=== PATIENT | female | born 1990 | race Caucasian/White ===

== ENCOUNTER 2024-09-13 19:58 | Emergency (ER) | payer OTHER, SELFPAY ==
--- NOTE | ~2024-09-13 | XR_ITS ---
CLINICAL HISTORY: dog bite 2 view right forearm Comparison: None Findings: No displaced fracture of the right radius or right ulna. 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 No dislocation of the imaged wrist or imaged elbow. No radiopaque retained foreign body. Soft tissue swelling with likely superficial gas of the ventral soft tissues. IMPRESSION: No acute fracture of the right radius or right ulna. This document has been electronically signed by: Albert Moran MD on 09/13/2024 20:57:59
[2024-09-13 20:04] VITALS: BP 112/71; PULSE 97; RESP 16; TEMP 36.7; O2SAT 100; BMI 30.1
--- NOTE | 2024-09-13 20:09 | ED_ITS ---
HPI - Animal Bite General Chief Complaint: Animal Bite Stated Complaint: Dog bite R arm Time Seen by Provider: 09/14/24 00:15 Source: patient, RN notes reviewed and old records reviewed Mode of arrival: ambulatory Limitations: no limitations History of Present Illness ED Provider: Joanne SINHA narrative: 34-year-old female presents for evaluation of a dog bite to her right arm. This was her dog that is up-to-date on his vaccines. The patient is not up-to-date on her tetanus shot. She states that she has had the dog for several years, The dog as noted been aggressive towards her. The dog does get somewhat possessive over food. She states that the dog bit her once in the right arm and she sustained 2 lacerations to the right arm Related Data Previous Rx's ?Medication ?Instructions ?Recorded amoxicillin 875 mg-potassium 1 tab PO Q12H #14 tabs 09/14/24 clavulanate 125 mg tablet Allergies Allergy/AdvReac Type Severity Reaction Status Date / Time avocado Allergy Gastrointestinal Verified 09/13/24 20:06 Upset pneumococcal vaccine Allergy Swelling Verified 09/13/24 20:06 Review of Systems Integumentary/Breasts: Skin/Breast: Reports wounds PMFSH Social History Social History Smoked in Last 30 Days: No Substance Use Type: Marijuana Advance Directives: No Advance Directives Information Provided: Yes Physical Exam ED Vital Signs: Vital Signs - 24 hr 09/13/24 20:04 09/13/24 23:32 09/14/24 01:40 Temperature 98.1 F 98.0 F 0 F L Pulse Rate 97 64 0 L Respiratory Rate 16 20 20 Blood Pressure 112/71 112/69 0/0 L Pulse Oximetry 100 99 Oxygen Delivery Method Room Air Room Air Room Air BMI result Body Mass Index 30.1 Const General: healthy appearing, comfortable, no acute distress, alert and awake Nutritional Appearance: well nourished Orientation/consciousness: patient oriented x3 HENMT Head: Yes normocephalic and Yes atraumatic Eyes Eyelids: Yes eyelids normal Conjunctivae: conjunctivae normal Sclerae: sclerae normal Corneas: corneas normal Pupils: Equal, round and reactive pupils present EOM: EOMs intact bilaterally Neck Neck: Yes full ROM Resp Effort & Inspection: normal respiratory effort, able to speak in complete sentences and not labored Skin General skin exam: elasticity normal Neuro General: patient oriented x3 Cranial nerves: Yes Equal, round and reactive pupils present and Yes Bilaterally intact EOM present Cognition (Neuro): normal cognition Extrem Other: Patient has a 3 cm linear, gaping wound to the ventral surface of the right forearm. Fatty tissue was exposed, no active bleeding. There was a smaller about 1 cm wound on the ulnar side of the arm distal to the larger laceration. Again fatty tissue exposed Course Course Course Narrative: This is a Rapid Medical Examination (RME) performed by Noemi Sharif PA-C in triage. Full HPI, ROS, assessment and treatment plan per primary provider in the Main ED. 34 yo female here for eval of dog bite to right forearm from her own dog. dog is UTD on vaccines. she is not utd on tetanus. +noted puncture wound to ventral and medial aspect of right forearm w/ SQ tissue. bleeding controlled. dressing applied. Plan: xrs, tdap booster Medications Administered Discontinued Medications Generic Name Dose Route Start Last Admin Trade Name Freq PRN Reason Stop Dose Admin Amoxicillin/Clavulanate Potassium 875 mg 09/14/24 00:36 09/14/24 00:42 Amoxicillin/Potassium Clav 875 Mg Tablet PO 09/14/24 00:37 875 mg ONCE ONE Administration Diphtheria/Tetanus/Acell Pertussis 0.5 ml 09/13/24 20:08 09/14/24 00:35 Diphth,Pertus(Acell),Tet Adult 0.5 Ml Syringe IM 09/13/24 20:09 0.5 ml .ONCE ONE Administration Lidocaine/Epinephrine 10 ml 09/14/24 00:36 09/14/24 00:42 Lidocaine Hcl 1%/Epi 1:100,000 10 Ml Vial INFILTRATI 09/14/24 00:37 10 ml ONCE ONE Administration Medical Decision Making Medical Decision Making [facility] Narrative: 34-year-old female presents for evaluation of lacerations to her right arm. X- ray negative for fracture. The patient has 2 gaping wounds, see procedure note for sutures to approximate the wounds. Patient will be started on Augmentin, 1st dose given in the ER, tetanus updated. Differential Diagnosis Differential Diagnoses: The differential diagnosis associated with the presentation includes Laceration Dog bite Puncture wound Contusion Procedures Laceration Laceration 1: Site: upper extremity Side (If applicable): right Size (cm): 3 Description: linear Depth: simple, single layer Local Anesthetic: lidocaine 1% and with epi Amount of anesthesia used (mL): 5 Pre-repair: wound explored, irrigated extensively and deep structures intact Skin layer closed with: vicryl Size (cm): 5-0 Number of sutures: 4 Technique: simple, interrupted Technique: other (Larger wound was approximated with 4 Vicryl sutures. The wound is still open to allow for drainage) Laceration 2: Site: upper extremity Side (If applicable): right Size (cm): 1 Description: linear Depth: simple, single layer Local Anesthetic: lidocaine 1% and with epi Amount of anesthesia used (mL): 2 Pre-repair: wound explored, irrigated extensively and deep structures intact Skin layer closed with: vicryl Size (cm): 5-0 Number of sutures: 2 Technique: simple, interrupted Technique: other (Wound was approximated with 2 Vicryl sutures. It was left open) Discharge Plan Discharge Clinical Impression: Dog bite Patient Disposition: Home, Self-Care Instructions: Animal Bite (ED) Additional Instructions: You had 6 total sutures placed into your wounds today. These will dissolve on their own in about 1 week These were to approximate the wound but not to close it completely. Keep the area clean and dry. You may apply topical antibiotic once daily Take the Augmentin antibiotic twice daily for the next 7 days Your tetanus was updated today Follow-up with your primary doctor, return for new or worsening symptoms Prescriptions: New amoxicillin-pot clavulanate 875-125 mg tablet 1 tab PO Q12H Qty: 14 0RF Interventions: ED Discharge Assessment Last Done: 09/14/24 01:40 Discharge Date/Time: 09/14/24 01:42 Print Language: Omani
[2024-09-13 23:32] VITALS: BP 112/69; PULSE 64; RESP 20; TEMP 36.7; O2SAT 99
[2024-09-14] MEDS: Diphth,Pertus(ACell),Tet Adult 0.5 ML SYRINGE IM (00:35)
[2024-09-14] MEDS: Amoxicillin/Potassium Clav 875 MG TABLET PO (00:42)
[2024-09-14] MEDS: Lidocaine HCl 1%/Epi 1:100,000 10 ML VIAL INFILTRATI (00:42)
[2024-09-14 01:40] VITALS: BP 0/0; PULSE 0; RESP 20; TEMP -17.7; TEMP 0
--- OUTSIDE RECORDS SUMMARY | 2024-09-14 01:40 | XMS_ITS | Data Portability ---
Author Organization [facility], , [facility] Address [address] [place] [address] Care Team Providers Care Operations Executive Name Role Phone CARYN LAURA Primary Care Provider [facility] [employer] [phone] [facility] Core Drilling Supervisor [phone] Assessment No assessment recorded. Plan of Treatment Reminders Order Date Submit Date Provider Last Modified By Organization Details Last Modified Time Details Appointments Wellness Visit 30 2024 01:30P Arianna Laura NP Not available Not available Not available Lab rapid strep group A, throat 2022 023 [facility], [address] [place] [address], [id number], 03/17/2023 19:59:11 culture, throat - source: throat 2022 023 [facility], [address] [place] [address], [id number], 03/20/2023 10:13:37 C-reactiv e protein, quantitat junior, serum or plasma 2022 023 [facility], [address] [place] [address], [id number], 06/09/2023 15:05:54 amylase, serum or plasma 2022 023 [facility], [address] [place] [address], [id number], 06/09/2023 15:05:52 lipase, serum or plasma 2022 023 [facility], [address] [place] [address], [id number], 06/09/2023 15:05:53 erythrocy te sedimenta tion rate by westergre n method 2023 024 [facility], [address] [place] [address], [id number], 09/08/2023 11:10:42 C-reactiv e protein, quantitat junior, serum or plasma 2023 024 [facility], [address] [place] [address], [id number], 09/08/2023 14:38:50 rf (rheumato id factor), igm, serum 2023 024 [facility], [address] [place] [address], [id number], 09/10/2023 11:15:55 JESUS (antinucl ear antibodie s) screen, ifa, serum 2023 024 [facility], [address] [place] [address], [id number], 09/13/2023 08:52:50 ESR (erythroc yte sedimenta tion rate), blood 2023 024 [facility], [address] [place] [address], [id number], 11/05/2023 14:49:30 C-reactiv e protein, quantitat junior, serum or plasma 2023 024 [facility], [address] [place] [address], [id number], 11/05/2023 15:49:56 lipid panel, serum 2023 024 [facility], [address] [place] [address], [id number], 11/05/2023 15:49:55 BMP, serum or plasma 2023 024 [facility], [address] [place] [address], 02952, 11/05/2023 15:49:53 CBC 2023 024 [facility], [address] [place] [address], [id number], 11/05/2023 12:21:47 Referral gastroent erologist referral - waxing/wa ben abdominal pain 2022 023 [facility], [address] [place] [address], [id number], 07/13/2023 10:31:34 Procedures None recorded. Surgeries None recorded. Imaging electroca rdiogram 2023 024 [facility], [address] [place] [address], [id number], 11/05/2023 10:51:54 Medication Orders omeprazol e 20 mg capsule,d elayed release 2022 024 [id number], [address] [place] [address], [id number], 09/08/2023 08:59:45 Patient TargetsNo targets recorded. Patient Instructions Encounter Date Encounter Id Patient Instructions Last Modified By Organization Details Last Modified Time 09/08/2023 [id number] asthma attack: care instructions [email or web address] Not available 09/08/2023 09:33:42 Well Visit, Ages 18 to 65: Care Instructions [email or web address] Not available 09/08/2023 09:33:42 After a discussi on of treatment options, which included consideration of best practices, patient preferences, and the patient? s individual lifestyle and treatment goals, as well as consideration and attempted mitigation of any barriers to meeting the patient? s goals, the following treatment plan and objectives were adopted: - personal health goals: increase water intake. exercise 3 days a week! - exercise 30 minutes, 5 days a week - balanced diet with lean protein, whole grains, veggies, fruit - 7-8 hours of sleep a night - 7-8 glasses of water a day - sunscreen in the sun, regular skin/tick checks - brush teeth at least twice a day - regular dental and eye exams - wellness visit in 1 year [email or web address] Not available 09/08/2023 09:36:31 11/05/2023 [id number] After a discussi on of treatment options, which included consideration of best practices and patient preferences, the??above treatment plan and objectives were adopted: [facility] serves as the focal point for all health care services the patient needs. [email or web address] Not available 11/05/2023 10:52:57 06/23/2024 [id number] [place] in September. Call/portal sooner if needed [email or web address] Not available 06/23/2024 09:45:41 Reason for Referral [employer] Referral for Abdominal pain waxing/waning abdominal pain Referring Physician: Leny Paredes, Family Medicine, Encounter Date: 06/09/2023 Results Created Date Observation Date Name Description Value Unit Range Abnormal Flag Note LastModifiedBy Organization Detail LastModifiedTime 02/18/2002/17/2023 CBC WBC 8.21 K/??L 3.98-1 0.04 Not Available [address], [address], 02/17/2023 10:45:22 02/18/20 23 02/17/2023 CBC RBC 4.61 M/??L 3.93-5 .22 Not Available [address], [address], 02/17/2023 10:45:22 02/18/20 23 02/17/2023 CBC HGB 13.5 g/dL 11.2-1 5.7 Not Available [address], [address], 02/17/2023 10:45:22 02/18/20 23 02/17/2023 CBC HCT 41.3 % 34.1-4 4.9 Not Available [address], 27[address], 02/17/2023 10:45:22 02/18/20 23 02/17/2023 CBC MCV 89.6 fL 79.4-9 4.8 Not Available [address], [address], 02/17/2023 10:45:22 02/18/20 23 02/17/2023 CBC MCH 29.3 pg 25.6-3 2.2 Not Available [address], 816[address], 02/17/2023 10:45:22 02/18/20 23 02/17/2023 CBC MCHC 32.7 g/dL 32.2-3 5.5 Not Available [address], [address]60, 02/17/2023 10:45:22 02/18/20 23 02/17/2023 CBC plt 268 K/??L 182-36 9 Not Available [address], 14[address], 02/17/2023 10:45:22 02/18/20 23 02/17/2023 CBC MPV 11.2 fL 9.4-12 .3 Not Available [address], [address], 02/17/2023 10:45:22 02/18/20 23 02/17/2023 CBC neut% 68.5 % 34.0-7 1.1 Not Available [address], 312[address], 02/17/2023 10:45:22 02/18/20 23 02/17/2023 CBC neut# 5.62 1.56-6 .13 Not Available [address], [address], 02/17/2023 10:45:22 02/18/20 23 02/17/2023 CBC lymph % 20.5 % 19.3-5 1.7 Not Available [address], 95[address], 02/17/2023 10:45:22 02/18/20 23 02/17/2023 CBC lymph # 1.68 K/??L 1.18-3 .74 Not Available [address], [address], 02/17/2023 10:45:22 02/18/20 23 02/17/2023 CBC mono% 6.2 % 4.7-12 .5 Not Available [address], 91798, 02/17/2023 10:45:22 02/18/20 23 02/17/2023 CBC mono# 0.51 0.24-0 .56 Not Available [address], 04188, 02/17/2023 10:45:22 02/18/20 23 02/17/2023 CBC eo% 3.9 % 0.7-5. 8 Not Available [address], 48[address], 02/17/2023 10:45:22 02/18/20 23 02/17/2023 CBC eo# 0.32 0.04-0 .36 Not Available [address], [address], 02/17/2023 10:45:22 02/18/20 23 02/17/2023 CBC baso% 0.7 % 0.1-1. 2 Not Available [address], 01062, 02/17/2023 10:45:22 02/18/20 23 02/17/2023 CBC baso# 0.06 0.00-0 .08 Not Available [address], 804[address], 02/17/2023 10:45:22 02/18/20 23 02/17/2023 CBC RDW-CV 12.8 % 11.7-1 4.4 Not Available [address], [address], 02/17/2023 10:45:22 02/18/20 23 02/17/2023 CBC Ig% 0.200 % 0.000- 1.500 Ig % >0.5 Indic ates possi ble Left Shift Not Available [address], 80193, 02/17/2023 10:45:22 02/18/20 23 02/17/2023 CBC Ig# 0.020 0.000- 0.093 Not Available [address], 7[address], 02/17/2023 10:45:22 02/18/20 23 02/17/2023 CBC NRBC% 0.0 % 0.0-0. 2 Not Available [address], 330[address], 02/17/2023 10:45:22 02/18/20 23 02/17/2023 CBC NRBC# 0.000 0.000- 0.012 Not Available [address], 04832, 02/17/2023 10:45:22 02/18/20 23 02/17/2023 ESR sed rate 4.0 0.0-15 .0 Not Available [address], 364[address], 02/17/2023 11:56:45 02/18/20 23 02/17/2023 COMP. METAB OLIC PANEL glucose 78 mg/dL 70-100 Not Available [address], [address], 02/17/2023 13:58:39 02/18/20 23 02/17/2023 COMP. METAB OLIC PANEL BUN 13 mg/dL 7-18 Not Available [address], [address]32[address], 02/17/2023 13:58:39 02/18/20 23 02/17/2023 COMP. METAB OLIC PANEL creatinine 0.9 mg/dL 0.8-1. 3 Not Available [address], 934[address], 02/17/2023 13:58:39 02/18/20 23 02/17/2023 COMP. METAB OLIC PANEL B/C 14.4 ratio Not Available [address], [address], 02/17/2023 13:58:39 02/18/20 23 02/17/2023 COMP. METAB OLIC PANEL GFR >=60ML /MIN mL/mi n normal >=60m L/min - Claudine l or midly reduc ed <60mL /min- Decre ased kidne y funct ion <15mL /min - Kidne y failu re [facility] calcu lates estim ated Glome rular Filtr ation Rate (eGFR ) using the Chron ic Kidne y Disea se Epide miolo gy Colla borat ion (CKD- EPI) Equat ion (Eliceo r et. al 2020) as recom elsie d by the Natio nal Kidne y Found ation . eGFR is based on age, serum creat inine , and sex. CKD-E PI does not calcu late eGFR by race, does not apply to child rico (age <18 years ), and shoul d not be used in pregn yenny. Not Available [address], [address], 02/17/2023 13:58:39 02/18/20 23 02/17/2023 COMP. METAB OLIC PANEL sodium 140 mmol/ L 136-14 5 Not Available [address], 9[address], 02/17/2023 13:58:39 02/18/20 23 02/17/2023 COMP. METAB OLIC PANEL potassium 4.4 mmol/ L 3.5-5. 1 Not Available [address], 73242, 02/17/2023 13:58:39 02/18/20 23 02/17/2023 COMP. METAB OLIC PANEL chloride 104 mmol/ L 96-107 Not Available [address], 25030, 02/17/2023 13:58:39 02/18/20 23 02/17/2023 COMP. METAB OLIC PANEL anion gap 12.7 5.0-15 .0 Not Available [address], 24863, 02/17/2023 13:58:39 02/18/20 23 02/17/2023 COMP. METAB OLIC PANEL CO2 23 mmol/ L 21-32 Not Available [address], 16298, 02/17/2023 13:58:39 02/18/20 23 02/17/2023 COMP. METAB OLIC PANEL calcium 8.9 mg/dL 8.5-10 .3 Not Available [address], 93599, 02/17/2023 13:58:39 02/18/20 23 02/17/2023 COMP. METAB OLIC PANEL total protein 7.0 g/dL 6.4-8. 2 Not Available [address], 78266, 02/17/2023 13:58:39 02/18/20 23 02/17/2023 COMP. METAB OLIC PANEL albumin 3.5 g/dL 3.4-5. 0 Not Available [address], 62391, 02/17/2023 13:58:39 02/18/20 23 02/17/2023 COMP. METAB OLIC PANEL globulin 3.5 g/dL Not Available [address], 12969, 02/17/2023 13:58:39 02/18/20 23 02/17/2023 COMP. METAB OLIC PANEL A/G 1.0 ratio 0.8-2. 0 Not Available [address], 78985, 02/17/2023 13:58:39 02/18/20 23 02/17/2023 COMP. METAB OLIC PANEL total bilirubin 0.30 mg/dL 0.00-1 .00 Not Available [address], 85883, 02/17/2023 13:58:39 02/18/20 23 02/17/2023 COMP. METAB OLIC PANEL AST 11 U/L 0-37 Not Available [address], 21430, 02/17/2023 13:58:39 02/18/20 23 02/17/2023 COMP. METAB OLIC PANEL ALT 23 U/L 6-63 Not Available [address], 33668, 02/17/2023 13:58:39 02/18/20 23 02/17/2023 COMP. METAB OLIC PANEL alk. phos. 44 U/L 50-136 low Not Available [address], 120[address], 02/17/2023 13:58:39 02/18/20 23 02/27/2023 C-BEN CTIVE PROTE IN C-reactive protein 20.2 mg/L <8.0 high Not Available [employer] [facility] [address], [address], 02/27/2023 18:29:07 03/17/20 23 03/17/2023 POCST REP strep A POC NEGATI VE Not Available [facility] [address] [place] [address], [address], 03/17/2023 17:36:42 03/17/20 23 03/20/2023 CULTU RE, THROA T culture, throat CULTU RE, THROA T Micro Numbe r: [id number] Test Statu s: Final Speci men Sourc e: Throa t Speci men Quali ty: Adequ ate Resul t: No oroph aryng eal patho gens recov ered. Not Available [facility] [address], [place], [address], 03/20/2023 10:13:36 06/09/2006/09/2023 AMYLA SE amylase 73 U/L 25-115 Not Available [address], [address], 06/09/2023 15:05:52 06/09/2006/09/2023 LIPAS E lipase 73 U/L 16-77 Not Available [address], [address], 06/09/2023 15:05:53 06/09/20 23 06/09/2023 C-BEN CTIVE PROTE IN (RCRP ) C-reactive protein (rcrp) 22.9 mg/dL 0.5-9. 0 high Not Available [address], [address], 06/09/2023 15:05:54 07/17/20 23 07/17/2023 CBC WBC 7.22 K/??L 3.98-1 0.04 Not Available [address], 13632, 07/17/2023 12:42:34 07/17/20 23 07/17/2023 CBC RBC 4.64 M/??L 3.93-5 .22 Not Available [address], [address]607, 07/17/2023 12:42:34 07/17/20 23 07/17/2023 CBC HGB 13.7 g/dL 11.2-1 5.7 Not Available [address], 727[address], 07/17/2023 12:42:34 07/17/20 23 07/17/2023 CBC HCT 41.7 % 34.1-4 4.9 Not Available [address], 86535, 07/17/2023 12:42:34 07/17/20 23 07/17/2023 CBC MCV 89.9 fL 79.4-9 4.8 Not Available [address], [address]016, 07/17/2023 12:42:34 07/17/20 23 07/17/2023 CBC MCH 29.5 pg 25.6-3 2.2 Not Available [address], [address]18, 07/17/2023 12:42:34 07/17/20 23 07/17/2023 CBC MCHC 32.9 g/dL 32.2-3 5.5 Not Available [address], [address], 07/17/2023 12:42:34 07/17/20 23 07/17/2023 CBC plt 274 K/??L 182-36 9 Not Available [address], 47880, 07/17/2023 12:42:34 07/17/20 23 07/17/2023 CBC MPV 10.9 fL 9.4-12 .3 Not Available [address], 84316, 07/17/2023 12:42:34 07/17/20 23 07/17/2023 CBC neut% 71.3 % 34.0-7 1.1 high Not Available [address], [address], 07/17/2023 12:42:34 07/17/20 23 07/17/2023 CBC neut# 5.15 1.56-6 .13 Not Available [address], 03609, 07/17/2023 12:42:34 07/17/20 23 07/17/2023 CBC lymph % 18.3 % 19.3-5 1.7 low Not Available [address], 03021, 07/17/2023 12:42:34 07/17/20 23 07/17/2023 CBC lymph # 1.32 K/??L 1.18-3 .74 Not Available [address], 47173, 07/17/2023 12:42:34 07/17/20 23 07/17/2023 CBC mono% 6.5 % 4.7-12 .5 Not Available [address], 19760, 07/17/2023 12:42:34 07/17/20 23 07/17/2023 CBC mono# 0.47 0.24-0 .56 Not Available [address], 76044, 07/17/2023 12:42:34 07/17/20 23 07/17/2023 CBC eo% 2.5 % 0.7-5. 8 Not Available [address], 49190, 07/17/2023 12:42:34 07/17/20 23 07/17/2023 CBC eo# 0.18 0.04-0 .36 Not Available [address], 99655, 07/17/2023 12:42:34 07/17/20 23 07/17/2023 CBC baso% 1.0 % 0.1-1. 2 Not Available [address], [address]25, 07/17/2023 12:42:34 07/17/20 23 07/17/2023 CBC baso# 0.07 0.00-0 .08 Not Available [address], 30109, 07/17/2023 12:42:34 07/17/20 23 07/17/2023 CBC RDW-CV 12.4 % 11.7-1 4.4 Not Available [address], 958[address], 07/17/2023 12:42:34 07/17/20 23 07/17/2023 CBC Ig% 0.400 % 0.000- 1.500 Ig % >0.5 Indic ates possi ble Left Shift Not Available [address], [address], 07/17/2023 12:42:34 07/17/20 23 07/17/2023 CBC Ig# 0.030 0.000- 0.093 Not Available [address], [address]14[address], 07/17/2023 12:42:34 07/17/20 23 07/17/2023 CBC NRBC% 0.0 % 0.0-0. 2 Not Available [address], [address], 07/17/2023 12:42:34 07/17/20 23 07/17/2023 CBC NRBC# 0.000 0.000- 0.012 Not Available [address], 34975, 07/17/2023 12:42:34 07/17/20 23 07/17/2023 C-BEN CTIVE PROTE IN (RCRP ) C-reactive protein (rcrp) 14.4 mg/dL 0.5-9. 0 high Not Available [address], [address], 07/17/2023 14:56:00 07/17/20 23 07/20/2023 TSH TSH 2.78 uIU/m L 0.50-6 .00 The Ameri can Colle ge of Endoc rinol ogy and Ameri can Thyro id Assoc iatio n recom mend goal TSH value s betwe en 0.4-4 .0 mIU/m L. Not Available [address], [address], 07/20/2023 12:43:09 07/17/20 23 07/21/2023 COMP. METAB OLIC PANEL glucose 83 mg/dL 70-100 Not Available [address], [address]205, 07/21/2023 11:48:31 07/17/20 23 07/21/2023 COMP. METAB OLIC PANEL BUN 12 mg/dL 7-18 Not Available [address], 7[address]51, 07/21/2023 11:48:31 07/17/20 23 07/21/2023 COMP. METAB OLIC PANEL creatinine 0.8 mg/dL 0.8-1. 3 Not Available [address], 79165, 07/21/2023 11:48:31 07/17/20 23 07/21/2023 COMP. METAB OLIC PANEL B/C 15.0 ratio Not Available [address], [address]39, 07/21/2023 11:48:31 07/17/20 23 07/21/2023 COMP. METAB OLIC PANEL GFR >=60ML /MIN mL/mi n normal >=60m L/min - Claudine l or midly reduc ed <60mL /min- Decre ased kidne y funct ion <15mL /min - Kidne y failu re [facility] calcu lates estim ated Glome rular Filtr ation Rate (eGFR ) using the Chron ic Kidne y Disea se Epide miolo gy Colla borat ion (CKD- EPI) Equat ion (Eliceo r et. al 2020) as recom elsie d by the Natio nal Kidne y Found ation . eGFR is based on age, serum creat inine , and sex. CKD-E PI does not calcu late eGFR by race, does not apply to child rico (age <18 years ), and shoul d not be used in pregn yenny. Not Available [address], [address], 07/21/2023 11:48:31 07/17/20 23 07/21/2023 COMP. METAB OLIC PANEL sodium 140 mmol/ L 136-14 5 Not Available [address], [address], 07/21/2023 11:48:31 07/17/20 23 07/21/2023 COMP. METAB OLIC PANEL potassium 4.8 mmol/ L 3.5-5. 1 Not Available [address], [address], 07/21/2023 11:48:31 07/17/20 23 07/21/2023 COMP. METAB OLIC PANEL chloride 104 mmol/ L 96-107 Not Available [address], [address], 07/21/2023 11:48:31 07/17/20 23 07/21/2023 COMP. METAB OLIC PANEL anion gap 10.4 5.0-15 .0 Not Available [address], 30483, 07/21/2023 11:48:31 07/17/20 23 07/21/2023 COMP. METAB OLIC PANEL CO2 26 mmol/ L 21-32 Not Available [address], 14684, 07/21/2023 11:48:31 07/17/20 23 07/21/2023 COMP. METAB OLIC PANEL calcium 8.8 mg/dL 8.5-10 .3 Not Available [address], [address], 07/21/2023 11:48:31 07/17/20 23 07/21/2023 COMP. METAB OLIC PANEL total protein 7.1 g/dL 6.4-8. 2 Not Available [address], [address], 07/21/2023 11:48:31 07/17/20 23 07/21/2023 COMP. METAB OLIC PANEL albumin 3.7 g/dL 3.4-5. 0 Not Available [address], [address]198, 07/21/2023 11:48:31 07/17/20 23 07/21/2023 COMP. METAB OLIC PANEL globulin 3.4 g/dL Not Available [address], [address]84, 07/21/2023 11:48:31 07/17/20 23 07/21/2023 COMP. METAB OLIC PANEL A/G 1.1 ratio 0.8-2. 0 Not Available [address], [address], 07/21/2023 11:48:31 07/17/20 23 07/21/2023 COMP. METAB OLIC PANEL total bilirubin 0.20 mg/dL 0.00-1 .00 Not Available [address], [address], 07/21/2023 11:48:31 07/17/20 23 07/21/2023 COMP. METAB OLIC PANEL AST 15 U/L 0-37 Not Available [address], [address]39, 07/21/2023 11:48:31 07/17/20 23 07/21/2023 COMP. METAB OLIC PANEL ALT 25 U/L 6-63 Not Available [address], 09142, 07/21/2023 11:48:31 07/17/20 23 07/21/2023 COMP. METAB OLIC PANEL alk. phos. 50 U/L 50-136 Not Available [address], [address], 07/21/2023 11:48:31 07/17/20 23 07/21/2023 TISSU E TRANS GLUTA EMILIANO E AB, IGA tissue transglutami nase Ab, IgA <1.0 U/mL normal Value Inter preta tion ----- ----- ----- ---- <15.0 Antib jaswinder not detec placido > or = 15.0 Antib jaswinder detec placido Not Available [facility] [address], [address], 07/21/2023 18:49:47 07/17/2007/21/2023 IMMUN OGLOB ULIN A immunoglobul in A 207 mg/dL 47-310 normal Not Available [facility] [address], [address], 07/21/2023 18:49:50 07/20/2007/28/2023 OVA AND ROMY ITES, CONC AND PERM SMEAR ova and parasites, conc and perm smear OVA AND ROMY ITES, CONC AND PERM SMEAR Micro Numbe r: [id number] Test Statu s: Final Speci men Sourc e: Fecal Speci men Quali ty: Adequ ate JAMIL NTRAT ION 1: No ova or romy ites seen TRICH CRISTOFER 1: No ova or romy ites seen Routi ne Ova and Romy ite exam may not detec t some romy ites that occas ional ly cause diarr heal illne ss. Crypt ospor idium Antig en and/o r Cyclo spora and Isosp ora Exam may be order ed to detec t these romy ites. One negat junior sampl e does not neces saril y rule out the prese nce of a romy itic infec tion. For addit ional infor bertha lainez e refer to https ://ed ucati on.qu lizAskuity. Earlier Media/f aq/FA Q203 (This link is being provi ded for infor manas polanco/ educa namrata l purpo ses only. ) Not Available [facility] [address], [place], [address], 07/28/2023 16:13:30 07/20/20 23 07/28/2023 SALMO KEYSHAWN /SHIG SOCORRO CULT, CAMPY EIA AND SHIGA TOXIN W/RFL E. COLI O157 CULT campylobacte r spp. Ag,EIA CAMPY LOBAC TER SPP. AG,EI A Micro Numbe r: [id number] Test Statu s: Final Speci men Sourc e: Fecal Speci men Quali ty: Adequ ate Campy Ag Resul t: Not Detec placido Refer ence Range : Not Detec placido Not Available [facility] [address], [place], [address], 07/28/2023 16:13:31 07/20/20 23 07/28/2023 SALMO KEYSHAWN /SHIG SOCORRO CULT, CAMPY EIA AND SHIGA TOXIN W/RFL E. COLI O157 CULT shiga toxins, EIA w/rfl to E.coli O157 culture SHIGA TOXIN S, EIA W/RFL TO E.COL I O157 CULTU RE Micro Numbe r: [id number] Test Statu s: Final Speci men Sourc e: Fecal Speci men Quali ty: Adequ ate Shiga Toxin : Not Detec placido Refer ence Range : Not Detec placido Not Available [facility] [address], [place], [address], 07/28/2023 16:13:31 07/20/20 23 07/28/2023 SALMO KEYSHAWN /SHIG SOCORRO CULT, CAMPY EIA AND SHIGA TOXIN W/RFL E. COLI O157 CULT salmonella and shigella, culture SALMO KEYSHAWN AND SHIGE LLA, CULTU RE Micro Numbe r: [id number] Test Statu s: Final Speci men Sourc e: Fecal Speci men Quali ty: Adequ ate Resul t: No Salmo keyshawn or Shige lla isola placido Not Available [facility] [address], [address], 07/28/2023 16:13:31 07/20/20 23 07/28/2023 FECAL FAT, QUALI TATIV E fecal fat, qualitative NORMAL normal Not Available [facility] [address] [place], [address], 07/28/2023 16:13:33 07/21/20 23 07/26/2023 GIARD IA AG, EIA, STOOL giardia Ag, EIA, stool GIARD IA AG, EIA, STOOL Micro Numbe r: [id number] Test Statu s: Final Speci men Sourc e: Stool Speci men Quali ty: Adequ ate Giard ia Resul t 1: Not Detec placido Refer ence Range : Not Detec placido NOTE: Due to inter mitte nt marcelo ing, one negat junior sampl e does not neces saril y rule out the prese nce of a romy itic infec tion. Not Available [facility] [address] [place], [address], 07/26/2023 10:02:25 07/21/20 23 07/26/2023 OVA AND ROMY ITES, CONC AND PERM SMEAR ova and parasites, conc and perm smear OVA AND ROMY ITES, CONC AND PERM SMEAR Micro Numbe r: [id number] Test Statu s: Final Speci men Sourc e: Stool Speci men Quali ty: Adequ ate JAMIL NTRAT ION 1: No ova or romy ites seen TRICH CRISTOFER 1: No ova or romy ites seen Routi ne Ova and Romy ite exam may not detec t some romy ites that occas ional ly cause diarr heal illne ss. Crypt ospor idium Antig en and/o r Cyclo spora and Isosp ora Exam may be order ed to detec t these romy ites. One negat junior sampl e does not neces saril y rule out the prese nce of a romy itic infec tion. For addit ional infor bertha lainez e refer to https ://ed ucati on.qu estdi agnos tics. com/f aq/FA Q203 (This link is being provi ded for infor manas nal/ educa namrata l purpo ses only. ) Not Available [facility] [address], [place], [address], 07/26/2023 10:02:26 07/22/20 23 07/29/2023 OVA AND ROMY ITES, CONC AND PERM SMEAR ova and parasites, conc and perm smear OVA AND ROMY ITES, CONC AND PERM SMEAR Micro Numbe r: [id number] Test Statu s: Final Speci men Sourc e: Stool Speci men Quali ty: Adequ ate JAMIL NTRAT ION 1: No ova or romy ites seen TRICH CRISTOFER 1: No ova or romy ites seen Routi ne Ova and Romy ite exam may not detec t some romy ites that occas ional ly cause diarr heal illne ss. Crypt ospor idium Antig en and/o r Cyclo spora and Isosp ora Exam may be order ed to detec t these romy ites. One negat junior sampl e does not neces saril y rule out the prese nce of a romy itic infec tion. For addit ional infor bertha lainez refer to https ://ed ucati on.qu [employer]. com/f aq/FA Q203 (This link is being provi ded for infor mattaurus nal/ educa namrata l purpo ses only. ) Not Available [facility] [address], [place], [address], 07/29/2023 15:13:35 07/27/20 23 07/28/2023 ANATO MAEVE PATHO LOGY path report [facility] [address] [place] [address] Lab Direc tor: Raquel dee MD Surgi tasha Patho logy Repor t Acces anayeli #: [id number] FINAL PATHO LOGIC DIAGN OSIS: A. DUODE NUM, BIOPS Y: No patho logic abnor malit ies. B. STOMA CH ANTRU M, BIOPS Y: No patho logic abnor malit ies. C. STOMA CH, BIOPS Y: No patho logic abnor malit ies. D. ESOPH AYLIN, BIOPS Y: No patho logic abnor malit ies. E. ILEUM , BIOPS Y: No patho logic abnor malit ies. F. RANDO M COLON , BIOPS Y: No patho logic abnor malit ies. Andree ctron icall y Aicha d Out By Lumin lynn benavides MD By his/h er signdesean mojica above , the patho logis t kurt fong as verna nieto the Final Diagn osis certi fies that he/sh e has perso jessica revie wed this case and confi rmed or corre cted the diagn osis. CLINI TASHA HISTO RY Epiga stric abdom inal pain, bloat ing, bowel goldman es Goldman e in bowel habit s, no prior colon oscop y SPECI MENS SUBMI TTED: A: DUODE NUM, BIOPS Y B: STOMA CH ANTRU M, BIOPS Y C: STOMA CH, BIOPS Y D: ESOPH AYLIN, BIOPS Y E: ILEUM , BIOPS Y F: RANDO M COLON , BIOPS Y GROSS DESCR IPTIO N A. DUODE NUM, BIOPS Y: Forma delfino: 4 fragm ents each 0.2 cm, entir malik casse tte A1. B. STOMA CH ANTRU M, BIOPS Y: Forma delfino: 1 fragm ent 0.3 cm, entir malik casse tte B1. C. STOMA CH, BIOPS Y: Forma delfino: 1 fragm ent 0.2 cm, entir malik casse tte C1. D. ESOPH AYLIN, BIOPS Y: Forma delfino: 2 fragm ents each 0.2 cm, entir malik casse tte D1. E. ILEUM , BIOPS Y: Forma delfino: 2 fragm ents each 0.3 cm, entir malik casse tte E1. F. RANDO M COLON , BIOPS Y: Forma delfino: Multi ple fragm ents measu ring in aggre gate 0.9 cm, entir malik casse tte F1. DN 07/27 Gross ing Staff : ELISSA Tracy nt Name: RAQUEL VELAZQUEZ : [birth year] (Age: 33) Sex: F 7 Insti tutio n: [facility] Locat ion: [facility] Date of Opera tion: 07/27 Date of Acces anayeli: 07/27 Repor placido: 07/28 15:35 Resul ts To: Jerome alonso MD, AB Jerome Noriega MD, BS [facility] Medic [facility] Speci altie s Not Available [facility] (Outpatient) [address] [place] [address], [address], 07/28/2023 16:29:08 09/08/19 24 09/08/2023 ESR sed rate 6.0 0.0-15 .0 Not Available [address], [address], 09/08/2023 11:10:42 09/08/19 24 09/08/2023 C-BEN CTIVE PROTE IN (RCRP ) C-reactive protein (rcrp) 15.9 mg/dL 0.5-9. 0 high Not Available [address], [address], 09/08/2023 14:38:49 09/08/19 24 09/10/2023 RHEUM ATOID FACTO R rf-IgM NEG IU/mL negati ve normal Refer ence Range : < 6 IU/mL Negat junior >/=6 IU/mL Posit junior >/= 25 IU/mL is High Posit junior, sugge stive of Rheum atoid Arthr itis. Not Available [address], [address], 09/10/2023 11:15:54 09/08/19 24 09/13/2023 JESUS SCREE N, IFA, W/REF L TITER AND PATTE RN JESSU screen, ifa NEGATI VE negati ve normal JESUS IFA is a first line scree n for detec ting the prese nce of up to appro ximat malik 150 autoa ntibo dies in vario us autoi mmune disea ses. A negat junior JESUS IFA resul t sugge sts an JESUS-a ssoci ated autoi mmune disea se is not prese nt at this time, but is not defin itive . If there is high clini tasha suspi cion for Sjogr en's syndr ome, testi ng for anti- SS-A/ Ro antib jaswinder shoul d be consi dered . Anti- Marylu-1 antib jaswinder shoul d be consi dered for clini ting suspe cted infla mmato ry myopa pipo . AC-0: Negat junior Inter natio nal Conse nsus on JESUS Patte rns (http s://d oi.or g/10. 8705/ [facility]- 2017- 0052) For addit ional infor bertha lainez e refer to http: //[facility] feli gandhi.Que stDia gnost ics.c om/fa q/FAQ 177 (This link is being provi ded for infor matio nal/ educa namrata l purpo ses only. ) Not Available [facility] [address] [place] [address] [place], [address], 09/13/2023 08:52:50 11/05/19 24 11/05/2023 CBC WBC 9.90 K/??L 3.98-1 0.04 Not Available [address], [address], 11/05/2023 12:21:47 11/05/19 24 11/05/2023 CBC RBC 4.46 M/??L 3.93-5 .22 Not Available [address], [address], 11/05/2023 12:21:47 11/05/19 24 11/05/2023 CBC HGB 13.3 g/dL 11.2-1 5.7 Not Available [address], [address], 11/05/2023 12:21:47 11/05/19 24 11/05/2023 CBC HCT 40.1 % 34.1-4 4.9 Not Available [address], [address], 11/05/2023 12:21:47 11/05/19 24 11/05/2023 CBC MCV 89.9 fL 79.4-9 4.8 Not Available [address], [address], 11/05/2023 12:21:47 11/05/19 24 11/05/2023 CBC MCH 29.8 pg 25.6-3 2.2 Not Available [address], [address], 11/05/2023 12:21:47 11/05/19 24 11/05/2023 CBC MCHC 33.2 g/dL 32.2-3 5.5 Not Available [address], [address], 11/05/2023 12:21:47 11/05/19 24 11/05/2023 CBC plt 268 K/??L 182-36 9 Not Available [address], [address], 11/05/2023 12:21:47 11/05/19 24 11/05/2023 CBC MPV 11.1 fL 9.4-12 .3 Not Available [address], [address], 11/05/2023 12:21:47 11/05/19 24 11/05/2023 CBC neut% 80.8 % 34.0-7 1.1 high Not Available [address], [address], 11/05/2023 12:21:47 11/05/19 24 11/05/2023 CBC neut# 7.99 1.56-6 .13 high Not Available [address], [address], 11/05/2023 12:21:47 11/05/19 24 11/05/2023 CBC lymph % 12.0 % 19.3-5 1.7 low Not Available [address], [address], 11/05/2023 12:21:47 11/05/19 24 11/05/2023 CBC lymph # 1.19 K/??L 1.18-3 .74 Not Available [address], [address], 11/05/2023 12:21:47 11/05/19 24 11/05/2023 CBC mono% 4.7 % 4.7-12 .5 Not Available [address], [address], 11/05/2023 12:21:47 11/05/19 24 11/05/2023 CBC mono# 0.47 0.24-0 .56 Not Available [address], [address], 11/05/2023 12:21:47 11/05/19 24 11/05/2023 CBC eo% 1.5 % 0.7-5. 8 Not Available [address], [address], 11/05/2023 12:21:47 11/05/19 24 11/05/2023 CBC eo# 0.15 0.04-0 .36 Not Available [address], [address], 11/05/2023 12:21:47 11/05/19 24 11/05/2023 CBC baso% 0.6 % 0.1-1. 2 Not Available [address], [address], 11/05/2023 12:21:47 11/05/19 24 11/05/2023 CBC baso# 0.06 0.00-0 .08 Not Available [address], [address], 11/05/2023 12:21:47 11/05/19 24 11/05/2023 CBC RDW-CV 12.6 % 11.7-1 4.4 Not Available [address], [address], 11/05/2023 12:21:47 11/05/19 24 11/05/2023 CBC Ig% 0.400 % 0.000- 1.500 Ig % >0.5 Indic ates possi ble Left Shift Not Available [address], [address], 11/05/2023 12:21:47 11/05/19 24 11/05/2023 CBC Ig# 0.040 0.000- 0.093 Not Available [address], [address], 11/05/2023 12:21:47 11/05/19 24 11/05/2023 CBC NRBC% 0.0 % 0.0-0. 2 Not Available [address], [address], 11/05/2023 12:21:47 11/05/19 24 11/05/2023 CBC NRBC# 0.000 0.000- 0.012 Not Available [address], [address], 11/05/2023 12:21:47 11/05/19 24 11/05/2023 ESR sed rate 9.0 0.0-15 .0 Not Available [address], [address], 11/05/2023 14:49:30 11/05/19 24 11/05/2023 BASIC METAB OLIC PANEL glucose 76 mg/dL 70-100 Not Available [address], [address], 11/05/2023 15:49:53 11/05/19 24 11/05/2023 BASIC METAB OLIC PANEL BUN 12 mg/dL 7-18 Not Available [address], [address], 11/05/2023 15:49:53 11/05/19 24 11/05/2023 BASIC METAB OLIC PANEL creatinine 0.8 mg/dL 0.8-1. 3 Not Available [address], [address], 11/05/2023 15:49:53 11/05/19 24 11/05/2023 BASIC METAB OLIC PANEL B/C 15.0 ratio Not Available [address], [address], 11/05/2023 15:49:53 11/05/1911/05/2023 BASIC METAB OLIC PANEL GFR >=60ML /MIN mL/mi n normal >=60m L/min - Claudine l or midly reduc ed <60mL /min- Decre ased kidne y funct ion <15mL /min - Kidne y failu re [facility] calcu lates estim ated Glome rular Filtr ation Rate (eGFR ) using the Chron ic Kidne y Disea se Epide miolo gy Colla borat ion (CKD- EPI) Equat ion (Eliceo r et. al 2020) as recom elsie d by the Natio nal Kidne y Found ation . eGFR is based on age, serum creat inine , and sex. CKD-E PI does not calcu late eGFR by race, does not apply to child rico (age <18 years ), and shoul d not be used in pregn yenny. Not Available [address], [address], 11/05/2023 15:49:53 11/05/19 24 11/05/2023 BASIC METAB OLIC PANEL sodium 140 mmol/ L 136-14 5 Not Available [address], [address], 11/05/2023 15:49:53 11/05/19 24 11/05/2023 BASIC METAB OLIC PANEL potassium 4.5 mmol/ L 3.5-5. 1 Not Available [address], [address], 11/05/2023 15:49:53 11/05/19 24 11/05/2023 BASIC METAB OLIC PANEL chloride 103 mmol/ L 96-107 Not Available [address], [address], 11/05/2023 15:49:53 11/05/19 24 11/05/2023 BASIC METAB OLIC PANEL anion gap 12.0 5.0-15 .0 Not Available [address], [address], 11/05/2023 15:49:53 11/05/19 24 11/05/2023 BASIC METAB OLIC PANEL CO2 25 mmol/ L 21-32 Not Available [address], [address], 11/05/2023 15:49:53 11/05/19 24 11/05/2023 BASIC METAB OLIC PANEL calcium 9.2 mg/dL 8.5-10 .3 Not Available [address], [address], 11/05/2023 15:49:53 11/05/19 24 11/05/2023 LIPID PANEL cholesterol 197 mg/dL <200 mg/dl Jack able 200-2 39 mg/dl Borde rline High >240 mg/dl High Not Available [address], [address], 11/05/2023 15:49:55 11/05/19 24 11/05/2023 LIPID PANEL triglyceride s 114 mg/dL <150 mg/dL Claudine l 150-1 99 mg/dL Borde rline High 200-4 99 mg/dL High >500 mg/dL Very High Not Available [address] [place], [address], 11/05/2023 15:49:55 11/05/19 24 11/05/2023 LIPID PANEL direct HDL 79 mg/dL <40 mg/dl - Major Risk for CHD >60 mg/dl - Negat junior Risk for CHD Not Available [address], [address], 11/05/2023 15:49:55 11/05/19 24 11/05/2023 C-BEN CTIVE PROTE IN (RCRP ) C-reactive protein (rcrp) 11.3 mg/dL 0.5-9. 0 high Not Available [address], [address], 11/05/2023 15:49:56 11/05/19 24 11/05/2023 LDL - CALCU LATED LDL - calculated 95.2 RISK CATEG ORY LDL GOAL _ CHD or CHD Risk Equiv alent s <100 mg/dl (10-y ear risk >20%) 2+ Risk Facto rs <130 mg/dl (10-y ear risk <= 20%) 0-1 Risk Facto r??? <160 mg/dl ??? Almos t all peopl e with 0-1 risk facto r have a 10 year risk <10%, thus 10 year risk asses ment in peopl e with 0-1 risk facto r is not tiarra gibbs. Not Available [address], [address], 11/05/2023 15:49:57 01/20/20 24 01/20/2024 PROTI ME PT 10.6 secon ds 9.0-10 .4 high Not Available [address], [address], 01/20/2024 10:36:45 01/20/20 24 01/20/2024 PROTI ME INR 1.1 0.9-1. [address]ed Value of 2.0-3 .0 for proph ylaxi s of Venou s Thomb osis, and preve ntion of Embol ism. Sugge sted Value of 2.5-3 .5 for preve ntion of Recur rent Embol ism or patie nts with Mecha nical Prost hetic Heart Valve s. Not Available [address], [address], 01/20/2024 10:36:45 01/20/20 24 01/20/2024 APTT PTT 25 secon ds 23-31 Not Available [address], [address], 01/20/2024 10:36:47 01/20/20 24 01/20/2024 CBC WBC 7.32 K/??L 3.98-1 0.04 Not Available [address], [address], 01/20/2024 10:43:11 01/20/20 24 01/20/2024 CBC RBC 4.69 M/??L 3.93-5 .22 Not Available [address], [address], 01/20/2024 10:43:11 01/20/20 24 01/20/2024 CBC HGB 13.8 g/dL 11.2-1 5.7 Not Available [address], [address], 01/20/2024 10:43:11 01/20/20 24 01/20/2024 CBC HCT 42.2 % 34.1-4 4.9 Not Available [address], [address], 01/20/2024 10:43:11 01/20/20 24 01/20/2024 CBC MCV 90.0 fL 79.4-9 4.8 Not Available [address], [address], 01/20/2024 10:43:11 01/20/20 24 01/20/2024 CBC MCH 29.4 pg 25.6-3 2.2 Not Available [address], [address], 01/20/2024 10:43:11 01/20/20 24 01/20/2024 CBC MCHC 32.7 g/dL 32.2-3 5.5 Not Available [address], [address], 01/20/2024 10:43:11 01/20/20 24 01/20/2024 CBC plt 246 K/??L 182-36 9 Not Available [address], [address], 01/20/2024 10:43:11 01/20/20 24 01/20/2024 CBC MPV 11.2 fL 9.4-12 .3 Not Available [address], [address], 01/20/2024 10:43:11 01/20/20 24 01/20/2024 CBC neut% 70.2 % 34.0-7 1.1 Not Available [address], [address], 01/20/2024 10:43:11 01/20/20 24 01/20/2024 CBC neut# 5.14 1.56-6 .13 Not Available [address], [address], 01/20/2024 10:43:11 01/20/20 24 01/20/2024 CBC lymph % 17.6 % 19.3-5 1.7 low Not Available [address], [address], 01/20/2024 10:43:11 01/20/20 24 01/20/2024 CBC lymph # 1.29 K/??L 1.18-3 .74 Not Available [address], [address], 01/20/2024 10:43:11 01/20/20 24 01/20/2024 CBC mono% 7.4 % 4.7-12 .5 Not Available [address], [address], 01/20/2024 10:43:11 01/20/20 24 01/20/2024 CBC mono# 0.54 0.24-0 .56 Not Available [address], [address], 01/20/2024 10:43:11 01/20/20 24 01/20/2024 CBC eo% 3.4 % 0.7-5. 8 Not Available [address], [address], 01/20/2024 10:43:11 01/20/20 24 01/20/2024 CBC eo# 0.25 0.04-0 .36 Not Available [address], [address], 01/20/2024 10:43:11 01/20/20 24 01/20/2024 CBC baso% 1.1 % 0.1-1. 2 Not Available [address], [address], 01/20/2024 10:43:11 01/20/20 24 01/20/2024 CBC baso# 0.08 0.00-0 .08 Not Available [address], [address], 01/20/2024 10:43:11 01/20/20 24 01/20/2024 CBC RDW-CV 13.1 % 11.7-1 4.4 Not Available [address], [address], 01/20/2024 10:43:11 01/20/20 24 01/20/2024 CBC Ig% 0.300 % 0.000- 1.500 Ig % >0.5 Indic ates possi ble Left Shift Not Available [address], [address], 01/20/2024 10:43:11 01/20/20 24 01/20/2024 CBC Ig# 0.020 0.000- 0.093 Not Available [address], [address], 01/20/2024 10:43:11 01/20/20 24 01/20/2024 CBC NRBC% 0.0 % 0.0-0. 2 Not Available [address], [address], 01/20/2024 10:43:11 01/20/20 24 01/20/2024 CBC NRBC# 0.000 0.000- 0.012 Not Available [address], [address], 01/20/2024 10:43:11 01/20/20 24 01/20/2024 ESR sed rate 5.0 0.0-15 .0 Not Available [address], [address], 01/20/2024 11:39:20 01/20/20 24 01/20/2024 COMP. METAB OLIC PANEL glucose 76 mg/dL 70-100 Not Available [address], [address], 01/20/2024 14:31:39 01/20/20 24 01/20/2024 COMP. METAB OLIC PANEL BUN 13 mg/dL 7-18 Not Available [address], [address], 01/20/2024 14:31:39 01/20/20 24 01/20/2024 COMP. METAB OLIC PANEL creatinine 0.7 mg/dL 0.8-1. 3 low Not Available [address], [address], 01/20/2024 14:31:39 01/20/20 24 01/20/2024 COMP. METAB OLIC PANEL B/C 18.6 ratio Not Available [address], [address], 01/20/2024 14:31:39 01/20/20 24 01/20/2024 COMP. METAB OLIC PANEL GFR >=60ML /MIN mL/mi n normal >=60m L/min - Claudine l or midly reduc ed <60mL /min- Decre ased kidne y funct ion <15mL /min - Kidne y failu re [facility] calcu lates estim ated Glome rular Filtr ation Rate (eGFR ) using the Chron ic Kidne y Disea se Epide miolo gy Colla borat ion (CKD- EPI) Equat ion (Eliceo r et. al 2020) as recom elsie d by the Natio nal Kidne y Found ation . eGFR is based on age, serum creat inine , and sex. CKD-E PI does not calcu late eGFR by race, does not apply to child rico (age <18 years ), and shoul d not be used in pregn yenny. Not Available [address], [address], 01/20/2024 14:31:39 01/20/20 24 01/20/2024 COMP. METAB OLIC PANEL sodium 142 mmol/ L 136-14 5 Not Available [address], [address], 01/20/2024 14:31:39 01/20/20 24 01/20/2024 COMP. METAB OLIC PANEL potassium 4.4 mmol/ L 3.5-5. 1 Not Available [address], [address], 01/20/2024 14:31:39 01/20/20 24 01/20/2024 COMP. METAB OLIC PANEL chloride 104 mmol/ L 96-107 Not Available [address], [address], 01/20/2024 14:31:39 01/20/20 24 01/20/2024 COMP. METAB OLIC PANEL anion gap 13.6 5.0-15 .0 Not Available [address], [address], 01/20/2024 14:31:39 01/20/20 24 01/20/2024 COMP. METAB OLIC PANEL CO2 24 mmol/ L 21-32 Not Available [address], [address], 01/20/2024 14:31:39 01/20/20 24 01/20/2024 COMP. METAB OLIC PANEL calcium 8.8 mg/dL 8.5-10 .3 Not Available [address], [address], 01/20/2024 14:31:39 01/20/20 24 01/20/2024 COMP. METAB OLIC PANEL total protein 7.1 g/dL 6.4-8. 2 Not Available [address], [address], 01/20/2024 14:31:39 01/20/20 24 01/20/2024 COMP. METAB OLIC PANEL albumin 3.9 g/dL 3.4-5. 0 Not Available [address], [address], 01/20/2024 14:31:39 01/20/20 24 01/20/2024 COMP. METAB OLIC PANEL globulin 3.2 g/dL Not Available [address], [address], 01/20/2024 14:31:39 01/20/20 24 01/20/2024 COMP. METAB OLIC PANEL A/G 1.2 ratio 0.8-2. 0 Not Available [address], [address], 01/20/2024 14:31:39 01/20/20 24 01/20/2024 COMP. METAB OLIC PANEL total bilirubin 0.40 mg/dL 0.00-1 .00 Not Available [address], [address], 01/20/2024 14:31:39 01/20/20 24 01/20/2024 COMP. METAB OLIC PANEL AST 16 U/L 0-37 Not Available [address], [address], 01/20/2024 14:31:39 01/20/20 24 01/20/2024 COMP. METAB OLIC PANEL ALT 43 U/L 6-63 Not Available [address], [address], 01/20/2024 14:31:39 01/20/20 24 01/20/2024 COMP. METAB OLIC PANEL alk. phos. 60 U/L 50-136 Not Available [address], [address], 01/20/2024 14:31:39 01/20/20 24 01/20/2024 LIPID PANEL cholesterol 165 mg/dL <200 mg/dl Jack able 200-2 39 mg/dl Borde rline High >240 mg/dl High Not Available [address], [address], 01/20/2024 14:31:40 01/20/20 24 01/20/2024 LIPID PANEL triglyceride s 57 mg/dL <150 mg/dL Claudine l 150-1 99 mg/dL Borde rline High 200-4 99 mg/dL High >500 mg/dL Very High Not Available [address], [address], 01/20/2024 14:31:40 01/20/20 24 01/20/2024 LIPID PANEL direct HDL 64 mg/dL <40 mg/dl - Major Risk for CHD >60 mg/dl - Negat junior Risk for CHD Not Available [address], [address], 01/20/2024 14:31:40 01/20/20 24 01/20/2024 LDL - CALCU LATED LDL - calculated 89.6 RISK CATEG ORY LDL GOAL _ CHD or CHD Risk Equiv alent s <100 mg/dl (10-y ear risk >20%) 2+ Risk Facto rs <130 mg/dl (10-y ear risk <= 20%) 0-1 Risk Facto r??? <160 mg/dl ??? Almos t all peopl e with 0-1 risk facto r have a 10 year risk <10%, thus 10 year risk asses ment in peopl e with 0-1 risk facto r is not necelizabeth sai. Not Available [address], [address], 01/20/2024 14:31:41 01/20/20 24 01/20/2024 C-BEN CTIVE PROTE IN (RCRP ) C-reactive protein (rcrp) 4.7 mg/dL 0.5-9. 0 Not Available [address], [address], 01/20/2024 14:52:40 01/20/20 24 01/30/2024 HOMOC YSTEI NE homocysteine 7.9 umol/ L <10.4 normal Homoc ystei ne is incre ased by funct ional defic iency of folat e or vitam in B12. Testi ng for methy lmalo kyara acid diffe renti ates betwe en these defic ienci es. Other cause s of incre ased homoc ystei ne inclu de renal failu re, folat e antag onist s such as metho trexa te and pheny toin, and expos ure to nitro us oxide . Cori Rucker, et al., Chari Inter n Med. 1999; 131(5 ):331 -9. Not Available [facility] Toni [place], [place], [address], 01/30/2024 05:02:40 01/20/2001/30/2024 ACTIV ATED PROTE IN C RESIS TANCE activated protein C resistance 5.7 ratio >=2.1 Ratio s >=2.1 : Negat junior for the Facto r V Leide n pheno type. Not Available [facility] [address] [place], [place], [address], 01/30/2024 05:02:41 01/20/20 24 01/30/2024 PROTE IN S, ACTIV ITY protein S, activity 71 %_nor mal 60-140 Not Available [facility] [address] [place]ri, [place], [address], 01/30/2024 05:02:42 01/20/20 24 01/30/2024 LUPUS ANTIC OAGUL ANT EVALU ATION WITH REFLE X lupus anticoagulan t SEE NOTE A Lupus Antic oagul ant is not detec placido. Refer ence Range : Not Detec placido For addit ional infor bertha lainez e refer to http: //phyllis arroyo stdia gnost ics.c om/fa q/FAQ 01v2 (This link is being provi ded for infor manas polanco/ educa namrata l purpo ses only. ) This inter preta tion is based on the follo wing test resul ts. Not Available [facility] [address] [place], [place], [address], 01/30/2024 05:02:42 01/20/20 24 01/30/2024 LUPUS ANTIC OAGUL ANT EVALU ATION WITH REFLE X PTT-la screen 32 sec <=40 Not Available [facility] [address] [place]ri, [place], [address], 01/30/2024 05:02:42 01/20/20 24 01/30/2024 LUPUS ANTIC OAGUL ANT EVALU ATION WITH REFLE X drvvt screen 40 sec <=45 Not Available [facility] [address], [address], 01/30/2024 05:02:42 01/20/20 24 01/30/2024 ANTIT HROMB IN III ACTIV ITY antithrombin III activity 95 %_nor mal 80-135 Not Available [facility] [address], [place], [address], 01/30/2024 05:02:43 01/20/20 24 01/30/2024 PROTE IN C, ACTIV ITY protein C, activity 98 %_nor mal 70-180 Not Available [facility] [address], [address], 01/30/2024 05:02:43 01/20/20 24 01/30/2024 ANTIP HOSPH OLIPI D ANTIB JASWINDER PANEL comment SEE NOTE The antip hosph olipi d antib jasiwnder syndr ome (APS) is a clini tasha-p athol ogic corre latio n that inclu balwinder a clini tasha event (e.g. arter ial or venou s throm bosis , pregn yenny morbi dity) and persi stent posit junior anti- phosp holip id antib odies (IgM, IgG Cardi olipi n or b2GPI antib odies great er than the 99th perce ntile ; or a lupus antic oagul ant). Inter natio nal conse nsus guide lines for APS sugge st waiti ng at least 12 weeks befor e retes ting to confi rm antib jaswinder persi stenc e. The Syste maeve Lupus Inter natio nal Colla borat ing Clini cs immun ologi tasha class ifica tion crite roberta for syste maeve lupus eryth yulia- tosus (SLE) inclu de testi ng for isoty pe IgA, which has yet to be incor porat ed into APS crite roberta. Low level antip hosph olipi d antib odies may somet imes be detec placido in the setti ng of infec tion, drug thera py or aging . For addit ional infor bertha lainez refer to http: //[facility] feli arroyo stdia gnost ics.c om/fa q/FAQ 109 (This link is being provi ded for infor manas polanco/ educa namrata l purpo ses only. ) Not Available [facility] [address], [address], 01/30/2024 05:02:44 01/20/2001/30/2024 ANTIP HOSPH OLIPI D ANTIB JASWINDER PANEL B2 glycoprotein I (IgG)Ab <2.0 U/mL <20.0 Value Inter preta tion ----- ----- ----- ---- < 20.0 Antib jaswinder not detec placido > or = 20.0 Antib jaswinder detec placido Not Available [facility] [place] [address], [address], 01/30/2024 05:02:44 01/20/20 24 01/30/2024 ANTIP HOSPH OLIPI D ANTIB JASWINDER PANEL B2 glycoprotein I (IgA)Ab <2.0 U/mL <20.0 Value Inter preta tion ----- ----- ----- ---- < 20.0 Antib jaswinder not detec placido > or = 20.0 Antib jaswinder detec placido Not Available [facility] [address], [address], 01/30/2024 05:02:44 01/20/20 24 01/30/2024 ANTIP HOSPH OLIPI D ANTIB JASWINDER PANEL B2 glycoprotein I (IgM)Ab <2.0 U/mL <20.0 Value Inter preta tion ----- ----- ----- ---- < 20.0 Antib jaswinder not detec placido > or = 20.0 Antib jaswinder detec placido Not Available [facility] [place] [address], [place], [address], 01/30/2024 05:02:44 01/20/20 24 01/30/2024 ANTIP HOSPH OLIPI D ANTIB JASWINDER PANEL phosphatidyl serine/ prothrombin Ab (IgG) <9 U <=30 For addit ional flashr bertha lainez e refer to http: //[facility]emi st[facility]ia gn[facility].c om/fa q/FAQ 262 (This link is being provi ded for infor matio nal/ educa namrata l purpo ses only. ) Not Available [facility] [address], [place], [address], 01/30/2024 05:02:44 01/20/20 24 01/30/2024 ANTIP HOSPH OLIPI D ANTIB JASWINDER PANEL phosphatidyl serine/ prothrombin Ab (IgM) <9 U <=30 For addit ional bertha churchill e refer to http: //[facility] stDia gnost ics.c om/fa q/FAQ 262 (This link is being provi ded for infor matio nal/ educa namrata l purpo ses only. ) Not Available [facility] [address], [place], [address], 01/30/2024 05:02:44 01/20/20 24 01/30/2024 ANTIP HOSPH OLIPI D ANTIB JASWINDER PANEL cardiolipin Ab (IgA) <2.0 apl-U /mL <20.0 Value Inter preta tion ----- ----- ----- ---- < 20.0 Antib jaswinder not detec placido > or = 20.0 Antib jaswinder detec placido Not Available [facility] [address], [place], [address], 01/30/2024 05:02:44 01/20/20 24 01/30/2024 ANTIP HOSPH OLIPI D ANTIB JASWINDER PANEL cardiolipin Ab (IgG) <2.0 gpl-U /mL <20.0 Value Inter preta tion ----- ----- ----- ---- < 20.0 Antib jaswinder not detec placido > or = 20.0 Antib jaswinder detec placido Not Available [facility] [address], [address], 01/30/2024 05:02:44 01/20/20 24 01/30/2024 ANTIP HOSPH OLIPI D ANTIB JASWINDER PANEL cardiolipin Ab (IgM) <2.0 mpl-U /mL <20.0 Value Inter preta tion ----- ----- ----- ---- < 20.0 Antib jaswinder not detec placido > or = 20.0 Antib jaswinder detec placido Not Available [employer] [facility] [address], [address], 01/30/2024 05:02:44 01/20/20 24 01/30/2024 JESUS SCREE N, IFA, W/REF L TITER AND PATTE RN JESUS screen, ifa NEGATI VE negati ve normal JESUS IFA is a first line scree n for detec ting the prese nce of up to appro ximat malik 150 autoa ntibo dies in vario us autoi mmune disea ses. A negat junior JESUS IFA resul t sugge sts an JESUS-a ssoci ated autoi mmune disea se is not prese nt at this time, but is not defin itive . If there is high clini tasha suspi cion for Sjogr en's syndr ome, testi ng for anti- SS-A/ Ro antib jaswinder shoul d be consi dered . Anti- Marylu-1 antib jaswinder shoul d be consi dered for clini ting suspe cted infla mmato ry myopa pipo . AC-0: Negat junior Inter natio nal Conse nsus on JESUS Bass rns (http s://d oi.or g/10. 1515/ cclm- 2017- 0052) For addit ional infor bertha lainez refer to http: //[facility] feli gandhi.Tony stDia gnost ics.c om/fa q/FAQ 177 (This link is being provi ded for infor manas polanco/ educa namrata l purpo ses only. ) Not Available [facility] [place] [facility] [address] Toni B, [place], [address], 01/30/2024 05:02:44 09/28/19 24 09/28/2023 XR, wrist CLINIC AL HISTOR Y: Right wrist pain. No trauma . TECHNI QUE: Three views of the right wrist obtain ed. COMPAR REMINGTON: None. FINDIN GS: There is no acute fractu re, sublux ation, or disloc ation. The soft tissue s are unrema rkable . IMPRES AANYELI: No acute bone abnorm ality. Readin g Physic rocío: [facility] [address] , [place], [address], 10/06/2023 09:51:25 11/05/19 24 11/05/2023 elect rocar diogr am No observ ation record ed. [facility] [address] [place], [address], 11/05/2023 16:29:34 11/05/19 24 elect rocar diogr am No observ ation record ed. [email or web address] Not Available 2023 10:52:52 09/13/19 25 09/13/2024 XR, forea rm No observ ation record ed. [facility] [address] [facility], [place], [address], 09/13/2024 21:01:14 Result Notes None recorded. Problems Name Problem SNOMED Code Status Onset Date Resolution Date Notes Provider Name and Address Organization Details Recorded Time Asthma 768666079 Active 016 Caryn Laura NP [address] [place] [address], [phone] , [facility] 09/04/2022 09:09:51 Acne 50626111 Active 016 Caryn Laura NP [address] [place], [address] , [facility] 01/22/2016 09:07:29 Problem Notes None recorded. Procedures Surgical History Date Name Laterality Status Provider Name and Address Organization Details Recorded Time 4 G2211 completed Caryn Laura NP [address] [place] [address], [phone], [facility] 11/05/2023 10:52:57 4 Asthma Control Test (12 + years old) completed Rhona Almaraz [facility] 09/08/2023 09:00:22 3 Asthma Control Test (12 + years old) completed Lily Alfonso [facility] 09/04/2022 08:59:03 2 Asthma Control Test (12 + years old) completed Radha Mckenzie [facility] 08/22/2021 08:59:20 0 prevention-chari [facility] alcohol misuse screening cancelled Radha Mckenzie [facility] 07/19/2020 16:20:58 0 Asthma Control Test (12 + years old) cancelled Radha Mckenzie [facility] 07/19/2020 16:21:05 9 Asthma Control Test (12 + years old) completed Radha Mckenzie [facility] 07/19/2019 11:11:21 9 POC hCG Testing completed Jorge A Pandya [facility] 01/26/2019 10:13:19 9 POC Urinalysis Testing completed Jorge A Pandya [facility] 01/26/2019 10:12:57 8 Asthma Control Test (12 + years old) completed Rayne Oliver MA [facility] 07/14/2018 11:19:18 8 POC Urinalysis Testing completed Rayne Oliver MA [facility] 03/03/2018 10:40:11 7 Asthma Control Test (12 + years old) completed Wandy Cruz LPN [facility] 02/04/2017 08:53:45 6 Asthma Control Test (12 + years old) completed Caryn Laura NP [address] [place] [address], [phone], [facility] 07/23/2016 09:41:06 Imaging Results Imaging Date Name Status LastModified by Organization Details LastModified Time 09/28/2023 XR, wrist [facility] [address] [facility] [place], [address], 10/06/2023 09:51:25 11/05/2023 electrocardiogram completed [facility] [address] [place], [address], 11/05/2023 16:29:34 11/05/2023 electrocardiogram completed Informa tion not available 11/05/2023 10:52:52 09/13/2024 XR, forearm active [facility] [address] [place] [address], [address], 09/13/2024 21:01:14 Procedure Notes None recorded. Medical Equipment None Reported. Allergies Allergen ID Allergen Name Allergen Category Reaction Reaction Severity Criticality Documentation Date Start Date Code Code System Note Provider Name and Address Organization Details Recorded Time [id number] Pneumovax 23 medicatio n angioedem a rash Not available Not available Not available 08/06/2017 24857 3 RxNorm Caryn Laura NP [address] [place], [address], [facility] 7 10:33:38 Medications Name Sig Start Date Stop Date Status Note LastModified by Organization Details LastModified Time Qvar 80 mcg/actua tion Metered Aerosol oral inhaler Inhale 1 puff every day by inhalati on route in the morning. 08/22 completed not needing currentl y Not Available Not Available Not Available Apri 0.15 mg-0.03 mg tablet TAKE 1 TABLET BY MOUTH EVERY DAY 02/04 completed Not Available Not Available Not Available cetirizin e 10 mg tablet TAKE 1 TABLET BY MOUTH EVERY DAY active Not Available Not Available No t Available ibuprofen 800 mg tablet TAKE 1 TABLET BY MOUTH 3 TIMES A DAY WITH MEALS NEEDED 08/22 completed Pt not taking 06/24/19 NMT Not Available Not Available Not Available ofloxacin 0.3 % eye drops active Not Available Not Available Not Available hydrocort isone valerate 0.2 % topical cream APPLY TWICE A DAY 01/26 completed Not Available Not Available Not Available prednison e 20 mg tablet TAKE 3 TABLETS BY MOUTH EVERY DAY FOR 5 DAYS 04/16 completed Not Available Not Available Not Available prednisol one acetate 1 % eye drops,malia pension active Not Available Not Available Not Available erythromy jung 5 mg/gram (0.5 %) eye ointment PLACE 0.5 INCHES INTO EACH EYE FOUR TIMES A DAY FOR 7 DAYS 08/22 completed Pt finished course 08/22/21 NMT Not Available Not Available Not Available diphenhyd ramine 25 mg capsule Take 2 capsules every day by oral route. 07/14 completed Not Available Not Available Not Available Qvar 40 mcg/actua tion Metered Aerosol oral inhaler INHALE 1 PUFF BY MOUTH TWICE A DAY 10/20 completed asthma well controll ed without this for over 3 months Not Available Not Available Not Available omeprazol e 20 mg capsule,d elayed release TAKE 1 CAPSULE BY MOUTH DAILY 30 MINUTES BEFORE MEALS NEEDED active Not Available Not Available No t Available hydrocort isone 2.5 % topical cream 02/17 completed PRN Not using anymore 09/04/22 VERENICE, not taking 11/17/22 ilir Not Available Not Available Not Available ketorolac 60 mg/2 mL intramusc ular solution Inject 2mL by IM route once. 08/06 completed Not Available Not Available Not Available atropine 1 % eye drops INSTILL 1 DROP IN LEFT EYE TWICE DAILY DIRECTED active Not Available Not Available No t Available fluticaso ne propionat e 50 mcg/actua tion nasal spray,malia pension USE 1 TO 2 SPRAYS EACH NOSTRIL EVERY DAY 07/14 completed Not Available Not Available Not Available drospiren one 3 mg-ethiny l estradiol 0.03 mg tablet TAKE 1 TABLET BY MOUTH EVERY DAY 08/22 completed Pt using vaginal ring 08/22/21 NMT Not Available Not Available Not Available fluticaso ne propionat e 110 mcg/actua tion HFA aerosol inhaler 11/01 completed Not Available Not Available Not Available naproxen 500 mg tablet Take 1 tablet twice a day by oral route with meals for 14 days. 08/22 completed No longer using 08/22/21 NMT Not Available Not Available Not Available Ventolin HFA 90 mcg/actua tion aerosol inhaler INHALE 2 PUFFS BY MOUTH EVERY 4 TO 6 HOURS NEEDED active Not Available Not Available No t Available Bactrim DS 800 mg-160 mg tablet Take 1 tablet every 12 hours by oral route for 3 days. 07/14 completed Not Available Not Available Not Available etonogest rel 0.12 mg-ethiny l estradiol 0.015 mg/24 hr vaginal ring INSERT 1 RING VAGINALL Y AND LEAVE IN PLACE FOR 3 WEEKS THEN REMOVE FOR 1 WEEK AND REPEAT active Not Available Not Available No t Available Ortho Tri-Cycle n LO (28) 0.18 mg/0.215 mg/0.25 mg-25 mcg tablet Take 1 tablet every day by oral route for 28 days. 07/14 completed Not Available Not Available Not Available Junel 08/29 (21) 1 mg-20 mcg tablet TAKE 1 TABLET BY MOUTH EVERY DAY 04/16 completed Not Available Not Available Not Available Tri-Previ fem (28) 0.18 mg(7)/0.2 15 mg(7)/0.2 5 mg(7)-35 mcg tablet TAKE 1 TABLET BY MOUTH EVERY DAY 07/14 completed Not Available Not Available Not Available nitrofura ntoin monohydra te/macroc rystals 100 mg capsule 04/16 completed Not Available Not Available Not Available albuterol 03/19 completed Not Available Not Available Not Available Qvar daily 04/16 completed Not Available Not Available Not Available Leny 0.35 mg tablet TAKE 1 TABLET BY MOUTH EVERY DAY active Not Available Not Available No t Available EpiPen 2-Justo 0.3 mg/0.3 mL injection , auto-inje ctor Take 1 auto by injectio n route as needed for 30 days. 07/19 completed Pt not taking and doesn't think she needs one 06/24/19 NMT Not Available Not Available Not Available Arnuity Ellipta 100 mcg/actua tion powder for inhalatio n Inhale 1 puff every day by inhalati on route, for asthma maintena nce. 2023 active Not Available Not Available Not Avai lable Qvar RediHaler 40 mcg/actua tion HFA breath activated aerosol Inhale 1 puff twice a day by inhalati on route. 10/20 completed Not Available Not Available Not Available Fluzone Quad (PF) 60 mcg (15 mcg x 4)/0.5 mL IM syringe ADM 0.5ML IM UTD 08/22 completed Not Available Not Available Not Available BinaxNOW COVID-19 Ag Self Test kit 11/17 completed Not Available Not Available Not Available Vitals Date Recorded Body height Body mass index (BMI) Body weight Oxygen saturation Oxygen saturation in Arterial blood by Pulse oximetry Heart rate Body temperature Systolic blood pressure Diastolic blood pressure Provider Name and Address Organization Details Last Updated DateTime 3 159.39 cm 13.6 kg/m2 09372.0 2 g 98 % 98 % 88 /min 99.6 [degF] 98 mm[Hg] 70 mm[Hg] Rhona Almaraz [facility] 3 17:28:56 Date Recorded Body height Body mass index (BMI) Body weight Heart rate Systolic blood pressure Diastolic blood pressure Provider Name and Address Organization Details Last Updated DateTime 3 159.39 cm 31.1 kg/m2 95186.0 7 g 90 /min 110 mm[Hg] 74 mm[Hg] Mis Ambrosio [facility] 3 09:46:00 Date Recorded Body height Body mass index (BMI) Body weight Oxygen saturation Oxygen saturation in Arterial blood by Pulse oximetry Heart rate Systolic blood pressure Diastolic blood pressure Provider Name and Address Organization Details Last Updated DateTime 4 160.02 cm 31 kg/m2 92295.6 6 g 99 % 99 % 84 /min 102 mm[Hg] 64 mm[Hg] Rhona Almaraz [facility] 4 09:01:58 Date Recorded Body height Body mass index (BMI) Body weight Heart rate Oxygen saturation Oxygen saturation in Arterial blood by Pulse oximetry Systolic blood pressure Diastolic blood pressure Provider Name and Address Organization Details Last Updated DateTime 4 160.02 cm 30.8 kg/m2 12252.0 7 g 82 /min 99 % 99 % 102 mm[Hg] 72 mm[Hg] Rhona Almaraz [facility] 4 10:24:32 Date Recorded Body height Body mass index (BMI) Body weight Heart rate Systolic blood pressure Diastolic blood pressure Provider Name and Address Organization Details Last Updated DateTime 4 160.02 cm 31.9 kg/m2 17592.6 3 g 76 /min 100 mm[Hg] 60 mm[Hg] [facility] 08:46:53 Social History Question Answer Notes LastModified by Organizat ion Details LastModified Time Tobacco Smoking Status Never Smoker Eufemia Jaquez LPN [facility] 01/22/2016 08:56:21 What Is Your Level Of Alcohol Consumption? Occasional 1-2 Drinks A Week Or Less Information not available 08/22/2021 Do You Wear A Helmet When Biking? Yes Information not available 01/22/2016 What Is Your Level Of Caffeine Consumption? Moderate 1 To 2 Cups Of Coffee A Day Information not available 01/22/2016 How Much Tobacco Do You Chew? None Information not available 01/22/2016 Are You Currently Employed? Yes [email or web address] Information not available 08/22/2021 What Type Of Diet Are You Following? REGULAR Doing Better With Vegetables Information not available 01/22/2016 Which Illicit Or Recreational Drugs Have You Used? Marijuana Once Or Twice Week Has Medical Marijuana Card (asthma) Information not available 01/22/2016 What Is The Highest Grade Or Level Of School You Have Completed Or The Highest Degree You Have Received? 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 2 Information not available 02/04/2017 Are There Any Guns Present In Your Home? Yes Secured Information not available 01/22/2016 Do You Use Insect Repellent Routinely? Yes [email or web address] Information not available 08/22/2021 Live Alone Or With Others? With Others With Boyfriend, Fletcher Information not available 01/22/2016 Does The Patient Have Difficulty Speaking Welsh? No Information not available 01/22/2016 Does The Patient Have Difficulty Reading Welsh? No Information not available 01/22/2016 Patient Has Health Care Proxy Signed And In Chart Yes BF, Signed And In Chart 02/04/17 Information not available 02/04/2017 Marital Status Single [email or web address] Informatio n not available 02/04/2017 Mosquito Repellent Used Routinely Yes Information not available 01/22/2016 What Was The Date Of Your Most Recent Tobacco Screening? 06/23/2024 [email or web address] Information not available 06/23/2024 Are There Any Occupational Health Risks Where You Work? None Information not available 01/22/2016 What Is Your Relationship Status? Single [place] [email or web address] Information not available 08/22/2021 Do You Use Your Seat Belt Or Car Seat Routinely? Yes Information not available 08/22/2021 Seat Belts Used Routinely Yes Information not available 01/22/2016 Are You Sexually Active? Yes Information not available 01/22/2016 Smoke Alarm In Home Yes Information not available 01/22/2016 Do You Have Smoke And Carbon Monoxide Detectors In Your Home? Yes [email or web address] Information not available 08/22/2021 Are You Passively Exposed To Smoke? No [email or web address] Information not available 08/22/2021 What Types Of Sporting Activities Do You Participate In? None Information not available 01/22/2016 General Stress Level Medium Information not available 01/22/2016 Do You Use Any Illicit Or Recreational Drugs? Yes [email or web address] Information not available 08/22/2021 Do You Use Sunscreen Routinely? Yes Information not available 01/22/2016 Do You Or Have You Ever Used Any Other Forms Of Tobacco Or Nicotine? No Information not available 08/22/2021 How Many Days In The Past Year Have You Consumed 4 Or More Drinks? 0 Information not available 09/08/2023 Sex: Unknown Functional Status Question Answer Note LastModified by Organization D etails LastModified Time What is your exercise level? Moderate Information not available 08/22/2021 Mental Status None recorded. Family History Relationship Description Onset Age of this Age Resolved Age Notes LastModified by Organization Details LastModified Time Paternal Grandfather Myocardial infarction 75 [email or web address] Not available 01/21 09:09:10 Maternal Grandfather Myocardial infarction 75 [email or web address] Not available 01/21 09:09:15 Maternal Grandmother Leukemia 80 [email or web address] Not available 01/21 09:09:53 Paternal Grandmother Malignant neoplastic disease 80 [email or web address] Not available 2015 09:10:15 Sister Asthma [email or web address] Not available 09:10:56 Father Venous varices [email or web address] Not available 2016 09:02:39 Mother Disorder of thyroid gland [email or web address] Not available 2022 09:17:00 Mother Diverticulit is [email or web address] Not available 2022 09:17:11 Notes:no DM, colon CA, breas t CA. no mental illness Medical History Condition Response acne Y Asthma Y Gynecological History Statement/Question Response Date of LMP Menses Monthly Y Duration of Flow (days) 4 History of Abnormal Pap N Current Control Method Vaginal Rin g Age at Menarche 13 LMP Approximate Obstetrics History GPAL:G 0 P 0 0 0 0 Immunizations Vaccine Type Date Status Note Provider Nam e and Address Organization Details Recorded Time Influenza, split virus, quadrivalent, PF 7 completed Not Available [facility] 08/27/2019 02:22:03 pneumococcal polysaccharide PPV23 7 completed Not Available [facility] 08/27/2019 02:22:29 Influenza, split virus, quadrivalent, PF 8 completed Not Available [facility] 08/27/2019 02:23:04 Tdap 6 completed Caryn Laura, LATHA [address] [place], [address], [facility] 02/04/2017 09:11:08 Influenza, split virus, quadrivalent, PF 9 completed Not Available [facility] 08/27/2019 02:24:35 Influenza, split virus, quadrivalent, PF 2 completed Radha Mckenzie CMA null, [facility] 08/22/2021 09:27:07 Influenza, split virus, quadrivalent, PF 3 completed Caryn Laura NP [address] [place] [address], [phone], [facility] 09/04/2022 09:14:51 Influenza, split virus, quadrivalent, PF 3 completed MATEO Virk [address] [place] [address], [phone], [facility] 06/09/2023 10:26:17 Influenza, split virus, trivalent, PF 4 completed Radha Ibrahim LPN null, [facility] 06/23/2024 14:20:10 COVID-19 vaccine, vector-nr, rS-Ad26, PF, 0.5 mL 1 completed Not Available [email or web address] 09/04/2022 08:49:56 COVID-19, mRNA, LNP-S, PF, 100 mcg/0.5mL dose or 50 mcg/0.25mL dose 1 completed Not Available [email or web address] 09/04/2022 08:49:56 Past Encounters Encounter ID Performer Location Encounter Start Date Encounter Closed Date Diagnosis/Indication Diagnosis SNOMED-CT Code Diagnosis ICD10 Code Diagnosis Note [id number] Caryn Laura NP , [facility], OFFICE [address] [place] [address] 01/22/2016 08:38:48 01/22/2016 09:31:38 Adult health examination 244129456 Z00.00 see Risk Assessment and Lifestyle Change Counseling section above Counseling 178527437 Z71 .9 Asthma 394291104 J45.90 9 well controlled Acne 22890583 L70.9 improving with OCP Allergy to food 36768269 1 Z91.413 [id number] Caryn Laura NP , [facility], OFFICE [address] [place] [phone] 03/19/2016 09:42:36 03/19/2016 10:13:20 Asthma 997926357 J45.604 [id number] Tara Yang MD , [facility], OFFICE [address] [place] [phone] 04/16/2016 10:06:34 04/16/2016 11:07:11 Acute iritis 56597028 H20.00 You have some inflammati on of the conjunctiv a and iris that could be caused by allergies. Because of tthe pattern of redness it is consistent with thyroiditi s which should be treated by an ophthalmol ogist. That type of Dr. would decide if you need steroid eyedrops. They also might give you allergy eyedrops .I will place a consult to have you seen by ophthalmol ogy in the next few days. [id number] Caryn Laura NP , [facility], OFFICE [address] [place] [phone] 07/23/2016 09:07:13 07/23/2016 09:39:34 Intrinsic asthma 825112547 J45.20 INTERMITTE NT Asthma- Based on history, physical assessment and peak flow the patients asthma is in control. Will continue the present medication s and follow-up in 6 months. The asthma action plan has been discussed. The patient verbalizes understand ing medication use.. The patient is in agreement with this plan. Counseling 706886539 Z71 .9 Environmental allergy 42 7258147 T78.49XD Hemorrhoids 56063777 K64 .9 small, resolving. pt declined exam today [id number] Caryn Laura NP , [facility], OFFICE [address] [place] [id number] 02/04/2017 08:43:13 02/04/2017 09:23:22 Adult health examination 644206671 Z00.00 see Risk Assessment and Lifestyle Change Counseling section above Counseling 671005405 Z71 .9 Intrinsic asthma 8068549 08 J45.20 INTERMITTE NT Asthma- Based on history, physical assessment and peak flow the patients asthma is in control. Will continue the present medication s and follow-up in 6 months. The asthma action plan has been discussed. The patient verbalizes understand ing medication use.. The patient is in agreement with this plan. Dizziness 074394427 R42 discussed low normal BP and mild orthostati c hypotensio n. will work on slow position change, stying hydrated, and regular salt intake [id number] Caryn Laura NP , [facility], OFFICE [address] [place] [phone] 05/19/2017 14:09:06 05/19/2017 15:26:20 Active or passive immunization 952453671 Z23 Contraception care 09561 5005 Z30.40 Dysmenorrhea 327519724 N 94.6 test negative today [id number] Caryn Laura NP FP, [facility], OFFICE [address] [place] [phone] 08/06/2017 09:12:24 08/06/2017 10:32:38 Screening for malignant neoplasm of cervix 507810112 Z12.4 pap done today Active or passive immunization 749125077 Z23 Dysmenorrhea 382554342 N 94.6 significan tly improved with OCP, will continue Allergic reaction 265843 005 T78.40XA allergic reaction to PPV23. angioedema , rash, pruritis. pt was given 50mg of benadryl. PRANEETH Gallardo stayed with pt and monitored vitals every 15 minutes (in chart). all symptoms resolved within an hour and pt left the office feeling well. she will continue to monitor and repeat benadryl in 3 hours. Rx for epipen to use for anaphylaxi s. 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, OFFICE [address] [place] [phone] 03/03/2018 10:22:46 03/03/2018 11:05:38 Urinary tract infectious disease 42133054 N39.0 UA consistent with UTI. Less likely nephrolith iasis.Jenna ent instructed to push fluids, to follow up for persistent or worsening symptoms or fever or back pain. [id number] Melva Umanzor RN BSN , [facility], OFFICE [address] [place] [phone] 05/31/2018 15:08:11 05/31/2018 16:12:30 Active or passive immunization 972832560 Z23 [id number] Caryn Laura NP , [facility], OFFICE [address] [place] [id number] 07/14/2018 11:01:26 07/14/2018 11:35:28 Adult health examination 339765038 Z00.00 see Risk Assessment and Lifestyle Change Counseling section above Counseling 850198713 Z71 .9 - pap 07/2017 with 3 year repeat Depression screening 171 211966 Z13.89 depression screening tool administer ed, entered into emr, scored and discussed, time greater than 7.5 minutes. negative. 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 Will continue the present medication s and follow-up in 6 months. The asthma action plan has been discussed. The patient verbalizes understand ing medication use.. The patient is in agreement with this plan. [id number] Caryn Laura NP , [facility], OFFICE [address] [place] [id number] 01/26/2019 09:07:03 01/26/2019 11:04:17 Pain in pelvis 10350246 R10.2 intermitte nt right sided pelvic pain x1 year. today on the left as well. triggered by position change especially in yoga. dysmenorrh ea though not particular ly heavy flow. will get pelvic ultrasound . may consider PT trace blood on UA, will send microscopi c. no dysuria. urine hcg negaive [id number] Caryn Laura NP FP, [facility], [address] [place] [address] 06/24/2019 15:45:11 06/24/2019 16:52:34 Active or passive immunization 853050200 Z23 Tendinitis of wrist 4238 73272 M67.839 right [id number] Caryn Laura NP , [facility], [address] [place] [address] 07/19/2019 11:01:45 07/19/2019 12:27:37 Counseling [id number] Z71.9 - Pap 07/2017 due 07/2020- HCP in chart Asthma [id number] J45.90 9 well controlled since starting recent allergy shots. follow up if needing albuterol 2+ times a week Adult [facility] th examination 532888474 Z00.00 see Risk Assessment and Lifestyle Change Counseling section above Tendinitis of right wrist region [id number] M67.833 persistent after trying brace and home exercises. never tried prescribed NSAID. encouraged to try. will also refer to OT. contact info given. she will call to schedule [phone] Caryn Laura NP , [facility], [address] [place] [address] 08/22/2021 08:48:07 08/22/2021 09:24:50 Adult health examination [id number] Z00.00 - HCP: 02/04/17, [place] Lee- Pap: 05/13/[address] Lorena Keen- vaccinated and boosted against covid 19- flu vaccine today- tetanus vaccine due 2025 Counseling 223037178 Z71 .9 Depression screening 171 664692 Z13.31 depression screening tool administer ed, entered into emr, scored and discussed, time greater than 7.5 minutes Screening for alcohol abuse 686545846 Z13.39 negative Mild inter mittent asthma 511681087 J45.20 (symptoms or bronchodil ator use at most two days per week) Based on history, physical assessment , and ACT, the patient's asthma is in control. Will continue the present medication s and follow up in 6 months.The asthma action plan has been discussed. The patient verbalizes understand ing medication use..The patient is in agreement with this plan. Screening for disorder 415144679 Z11.59 Active or passive immunization 879420507 Z23 Pain of le ft hip joint [id number] 43759 M25.552 x5 months. improving. will continue to monitor. may consider PT. would refer Obesity 263806753 E66.9 discussed regular exercise and balanced diet. will get screening labs, lipids and glucose Mild major depression 87 744379 F32.0 continue working on regular sleep and self care. may consider scheduling with a therapist [id number] Caryn Laura NP , [facility], [address] [place] [address] 09/04/2022 08:49:53 09/04/2022 09:35:38 Adult health examination 240100279 Z00.00 - HCP: 02/04/17, [place] Lee- Pap: 05/13/[address] Lorena Keen- BP wnl today- Hep C screening negative 2021- tetanus vaccine 2025- annual flu vaccine today Counseling 928941005 Z71 .9 Depression screening 171 423415 Z13.31 depression screening tool administer ed, entered into emr, scored and discussed, time greater than 7.5 minutes. see below Screening for alcohol abuse 020888462 Z13.39 negative Mild inter mittent asthma 321223348 J45.20 (symptoms or bronchodil ator use at most two days per week) Based on history, physical assessment , and ACT, the patient's asthma is in control. Will continue the present medication s and follow up in 6 months. The asthma action plan has been discussed. The patient verbalizes understand ing medication use.. The patient is in agreement with this plan. Active or passive immunization 227596519 Z23 Flu: will do todayCovid : declines today Fatigue 20987635 R53.83 likely multifacto rial. Will get labs and follow up in a few weeks Anxiety 91039514 F41.9 anxiety/de pression- worse lately- encouraged to schedule with a therapist. Contact info sheet given- continue working on self care- continue working on sleep hygiene- start sertraline daily as prescribed . We discuss possible temporary side effects when starting this medication including stomach upset, headache, and worsening anxiety. This typically resolves after 2 weeks- Follow up in 3 weeks. call/rambo l sooner if needed Major depr essive disorder 511442255 F32.1 see above [id number] MATEO Virk , [facility], [address] [place] [address] 11/17/2022 11:12:10 11/28/2022 10:12:40 COVID-19 080562013 U07.1 Symptom onset last night with positive test this morningPax lovid treatment discussed with patient including emergency use approval, qualifying factors, risks/bene fits, potential side effectsPt prefers to decline treatment at this time, will call within 5 day window if she changes her mind Mild inter mittent asthma 998166256 J45.20 no SOB at this timereview ed use of albuterol as needed, call if needing refill of this and/or maintenanc e inhaler (has used ICS in the past with URIs - declines refill at this time) [id number] MATEO Virk , [facility], [address] [place] [address] 02/17/2023 08:06:38 02/17/2023 08:33:10 Abdominal pain 51018343 R10.9 intermitte nt with urgent diarrhea, typically once weeklychec k labs and start food/pete er diary, rec to also increase water, exercise, fiber, try FodMap dietdiscus sed GI referral, deferred at this timecall with any new/worsen ing symptoms [id number] Cy Taylor MD , [facility], [address] [place] [address] 03/17/2023 17:05:26 03/17/2023 17:49:04 Pharyngitis 250067897 J02.9 Patient presents for evaluation of sore throat that is consistent with strep or virus. not likely mono. We will treat with: Discussed supportive measures. Follow up if not improving or with new symptoms, or any other concerns. Pain in throat 640196908 R07.0 with exudates on R tonsil. check Cx. await cx for treatment. use SWG's. Rapid strep neg. if much worse tomorrow [id number] MATEO Virk FP, [facility], [address] [place] [address] 06/09/2023 09:34:11 06/09/2023 10:23:40 Active or passive immunization 688596451 Z23 flu - will get today 06/09/23 cc Abdominal pain 47861368 R10.9 Ongoing intermitte nt abdominal painsRec probiotic once per week or every other day rather than dailyConti nue avoiding dairy and other triggersTr ial Omeprazole prn for refluxDisc ussed can repeat CRP and check lipase/donnie lase to assess pancreas function, CMP was WNLUS deferred at this timeGI referral placed for f/u Gastroesop hageal reflux disease [id number] K21.9 as above [id number] Sonia Fleming, [facility] barrel assembly inspector , [address] [address] 07/27/2023 07:24:29 07/27/2023 11:28:33 [id number] Caryn Laura NP , [facility], [address] [place] [address] 09/08/2023 08:48:58 09/11/2023 13:10:08 Adult health examination 968254117 Z00.00 - HCP: 02/04/17, [facility] Hines and Maria Isabel Lee- Pap: 05/13/[address] Lorena Keen- BP wnl today- Hep C screening negative 2021- fasting lipids and bs wnl 2021- tetanus vaccine 2025- annual flu vaccine recommende d- covid vaccine recommende d Depression screening 171 110915 Z13.31 depression screening tool administer ed. discussed Screening for alcohol abuse 153498966 Z13.39 Alcohol use screening tool administer ed. negative Mild inter mittent asthma 720981837 J45.20 (symptoms or bronchodil ator use at most two days per week) Based on history, physical assessment , and ACT, the patient's asthma is in control. Will continue the present medication s and follow up in 6 months. The asthma action plan has been discussed. The patient verbalizes understand ing medication use.. The patient is in agreement with this plan. Joint pain 49278007 M25. 50 right volar ulnar wrist tenderness for a few months. No pain with ROM. No injury. His of elevated CRP. will recheck and follow up based on results. May consider xray Major depr essive disorder 021436325 F32.0 doing well at this time with self care Indigestion 460187249 K3 0 resolved after endoscopy and colonoscop y 07/2023 [id number] Caryn Laura NP , [facility], [address] [place] [address] 11/05/2023 10:03:53 11/06/2023 12:21:45 Pre-surgery evaluation 341986495 Z01.818 pre-op virtrectom y 11/09 - Subhyaloid Hemorrhage : intraocula r collection of blood that remains contained in a self-creat ed, previously nonexisten t space.- Peripheral retinal Degenerati on- Valsalva Retinopath y - EKG NSR today- BP wnl- okay to procedure with procedure as planned Subhyaloid hemorrhage 24 5039272 H35.60 Recent blind spot in left eye upon waking up. No clear triggers. See plan above. Will get fasting labs Peripheral retinal degeneration 67278974 H35.40 see above. 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, [address] [place] [address] 06/23/2024 08:39:56 06/23/2024 12:16:01 Active or passive immunization 887876652 Z23 Flu: will do todayCovid : recommende d Actinic keratosis 007 L57.0 nose. will refer to derm due to location Neoplasm o f uncertain behavior of skin 57734984 D48.5 left shoulder. brown nevi that has changed some, irregular boarders. will refer to derm. Pt will let me know which dermatolog ist takes her insurance Health Concerns Section Related Observation LastModified by Organization Detai ls LastModified Time None Recorded Concern Status LastModified by Organization Details LastModified Time None Recorded Advance Directives Directive None Recorded Payers Encounter Date Sequence Insurance Name Policy Number Policy Bhatia Covered Member ID Bhatia Member ID Guarantor Name 03/17/2023 1 [facility] PLAN - NAVIGATOR (PPO) [id number] Raquel Lee [id number] 1 Raquel Lee 06/09/2023 1 ON LICENSE OF [facility] - DIRECT CONNECTORCARE TYPE I (HMO) [id number] Raquel Lee [id number] Raquel Lee 09/08/2023 1 ON LICENSE OF [facility] - DIRECT CONNECTORCARE TYPE I (HMO) [id number] Raquel Hernandezey [id number] Raquel Lee 11/05/2023 1 ON LICENSE OF [facility] - DIRECT CONNECTORCARE TYPE I (HMO) [id number] Raquel Hernandezey [id number] 1 Raquel Lee 06/23/2024 1 ON LICENSE OF [facility] - DIRECT CONNECTORCARE TYPE I (HMO) [id number] Raquel Lee [id number] 1 Raquel Lee Notes Date Note Type Note Provider Name and Address Organization Details Recorded Time 03/17/2023 text/html [facility] URI Flu like SymptomsReported bypatient.Duration:sta rted 2 days ago Associated Symptoms:No fatigue or malaise; Good oral intake; No headache; No significant muscle aches; No sweats; No congestion; No purulent nasal discharge; No sinus pressure; No cough; No sputum production; No wheezing; No shortness of breath; No ear pressure or fullness; No earache; No difficulty swallowing; No swollen glands; No chest pain with deep breath; No abdominal pain; No nausea; No vomiting; No diarrhea; No rash;fever/chills;Sore throat Cy Taylor MD [address] [place] [address], [phone] 03/17/2023 17:48:24 06/09/2023 text/html 06/09/23-f/u sto mach pain Reports stomach aches are less frequent and happen once every 2 weeks. Reports intermittent constipation and softer BMs. Reports giving up dairy, with improvement in symptoms. Reports trying to avoid FODMAP foods like apples and raw vegetables, with improvement. Reports no change in symptoms with gluten or egg.Today reports bloating multiple times per week, belching and acid reflux worsening. Symptoms typically respond well to TUMs but most recently had acid reflux for 3 days without relief.Tracks BMs with [facility].Denies fevers, chest pain, shortness of breath, nausea, bloody or black stools, urinary symptoms, cyclical pattern of symptoms with menses. Denies menses (skips period with NuvaRing). [birth year]23-32 yo F presents for abdominal concerns.c/o weekly stomach aches, sometimes associated with urgent diarrheaongoing x at least 1 year, feels like its worseningBMs prior once daily in AM and normal color/consistencyno feversunsure if related to something she's eating but tries to stay pretty consistent with her foods, meal preps - crackers hummus, deli meat, turkey, salads, toast, cottage cheese or yogurt, trying to increase probiotics MATEO Virk [address] [place] [address], [phone], [facility] 06/09/2023 10:29:19 09/08/2023 text/html Physical Exam/FemaleReported bypatient.Notes: Risk Assessment and Lifestyle Change Counseling 18-50Reported bypatient.Coronary Artery Disease Risk Assesment:Family History of Coronary Artery Disease; Patient has risk for coronary artery disease; [place] 10 year cardiac risk Breast Cancer Risk Assessment:No family history of breast cancer Lung Cancer Risk Assessment:Never smoked Cognitive/Behavioral Risk Assessment:No personal history of mental illness; No family history of mental illness Safety Risk Assessment:No evidence of abuse/neglect Diet:Counseled about appropriate portion size; Counseled about eating a diet low in trans and saturated fats and high in fiber, fruits and vegetables; Counseled about appropriate calcium intake and good dietary sources of calcium.; Discussed the value of a Mediterranean diet, and eating more fruits and vegetables Exercise counseling:Discussed the importance of daily physical activity; Discussed the importance of weight bearing exercise Safety:Counseled about protecting skin from the sun and lowering the risk of skin cancer; Counseled about use of helmets for high velocity activiities Family Planning:Using control Nuva RingVMG AsthmaReported bypatient.Severity/Int ensity/Frequency of Symptoms:Intermittent asthma with symptoms less than 2 days per week Control:See ACT test Compliance:compliant with rescue medications Self Care:has asthma action plan Triggers:allergies;exe rcise;upper respiratory infection; significant improvement with allergy shots Associated Symptoms:no fever; no nighttime awakening; no cough; normal appetite; no interference with activities;fatigue 32yo F presents for wellness visit - HCP: 02/04/17, Villa Hines and Maria Isabel Lee- Pap: 05/13/[address] Lorena Keen- BP wnl today- Hep C screening negative 2021- fasting lipids and bs wnl 2021- tetanus vaccine 2025- annual flu vaccine recommended- covid vaccine recommended popping in left ear when touching her cheek. no pain. lasted 2 weeks then resolved. no jaw pain. right wrist pin for a few months. feels bruised. no pain with motion. denies injury Asthma- ACT Score: 25- triggers: exercise, allergies- albuterol prior to exercise. no recent rescue use needed- allergy shots have helpd a lot exercise: walking and indoor bike GI upset resolved after colo and endo in july. GI noted consistently high CRP mental health- doing well at this time Caryn Laura NP [address] [place] [address], [phone], [facility] 09/08/2023 09:38:08 11/05/2023 text/html 33yo F presents for pre-op virtrectomy 11/09 - woke up one morning with a spot of vision loss in left eye- reviewed ohpthomolgy note. Subhyaloid Hemorrhage: intraocular collection of blood that remains contained in a self-created, previously nonexistent space. Plan for Vitrectomy 11/10/23. Peripheral retinal Degeneration. Valsalva Retinopathy: preretinal hemorrhage. avoid anticoagulants and strenuous activity. hx of sudden blind spot after waking up - pt reports being told this may have been a random event vs. r/t HTN, hyperlipidemia, diabetes, autoimmune, control. No other symptoms - denies chest pain, palpitations, dyspnea, orthopnea, change in exercise capacity Caryn Laura NP [address] [place], [address], [facility] 11/05/2023 10:53:44 06/23/2024 text/html 34yo F presents with c/o spot on nose x6 months-possibly a little bigger or just paying more attention to it- not itchy, bleeding painful- spot on back for most of her life. occasionally itchy or scratches and then feels it. has bleed when scratching it- tried to schedule with derm and they were booking very far out.- No known Fhx of skin cancer- tired but reasonable- otherwise feeling well. no decrease in appetite or weight loss Caryn Laura, [facility] [address] [place] [address], [phone], [facility] 06/23/2024 09:45:56 OBGyn Episode No OBEpisode recorded.
--- OUTSIDE RECORDS SUMMARY | 2024-09-14 01:40 | XMS_ITS | Data Portability ---
Author Organization [facility], FP, EHC, OFFICE Address [address] [place] [id number] Care Team Providers Care Application Software Developer Name Role Phone CARYN LAURA Primary Care Provider [phone] [facility] Certification Technician [facility] Irrigation Teacher [phone] Assessment No assessment recorded. Plan of Treatment Reminders Order Date Submit Date Provider Last Modified By Organization Details Last Modified Time Details Appointments Wellness Visit 30 2024 01:30P Arianna Laura NP Not available Not available Not available Lab rapid strep group A, throat 2022 023 [facility], [address] [place] [address], [address], 03/17/2023 19:59:11 culture, throat - source: throat 2022 023 [facility], [address] [place] [address], [address], 03/20/2023 10:13:37 C-reactiv e protein, quantitat junior, serum or plasma 2022 023 [facility], [address] [place] [address], [id number], 06/09/2023 15:05:54 amylase, serum or plasma 2022 023 [facility], [address] [place] [address], [address], 06/09/2023 15:05:52 lipase, serum or plasma 2022 023 [facility], [address] [place] [address], [address], 06/09/2023 15:05:53 erythrocy te sedimenta tion rate by westergre n method 2023 024 [facility], [address] [place] [address], [address], 09/08/2023 11:10:42 C-reactiv e protein, quantitat junior, serum or plasma 2023 024 [facility], [address] [place] [address], [address], 09/08/2023 14:38:50 rf (rheumato id factor), igm, serum 2023 024 [facility], [address] [place] [address], [address], 09/10/2023 11:15:55 JESUS (antinucl ear antibodie s) screen, ifa, serum 2023 024 [facility], [address] [place] [address], [address], 09/13/2023 08:52:50 ESR (erythroc yte sedimenta tion rate), blood 2023 024 [facility], [address] [place] [address], [address], 11/05/2023 14:49:30 C-reactiv e protein, quantitat junior, serum or plasma 2023 024 [facility], [address] [place] [address], [address], 11/05/2023 15:49:56 lipid panel, serum 2023 024 [facility], [address] [place] [address], 163[address], 11/05/2023 15:49:55 BMP, serum or plasma 2023 024 [facility], [address] [place] [address], [address], 11/05/2023 15:49:53 CBC 2023 024 [facility], [address] [place] [address], [address], 11/05/2023 12:21:47 Referral gastroent erologist referral - waxing/wa ben abdominal pain 2022 023 [facility], [address] [place] [address], [address], 07/13/2023 10:31:34 Procedures None recorded. Surgeries None recorded. Imaging electroca rdiogram 2023 024 [facility], [address] [place] [address], [address], 11/05/2023 10:51:54 Medication Orders omeprazol e 20 mg capsule,d elayed release 2022 024 [id number], [address], [place], [id number], 09/08/2023 08:59:45 Patient TargetsNo targets recorded. Patient Instructions Encounter Date Encounter Id Patient Instructions Last Modified By Organization Details Last Modified Time 09/08/2023 [id number] asthma attack: care instructions zorek Not available [...] year [email or web address] Not available 09/08/2023 09:36:31 11/05/2023 [id number] After a discussi on of treatment options, which included consideration of best practices and patient preferences, the??above treatment plan and objectives were adopted: [facility] serves as the focal point for all health care services the patient needs. zorek Not available 11/05/2023 10:52:57 06/23/2024 [id number] [place] in September. Call/portal sooner if needed zorek Not available 06/23/2024 09:45:41 Reason for Referral Certification Technician Referral for Abdominal pain waxing/waning abdominal pain Referring Physician: Leny Paredes, Family Medicine, Encounter Date: 06/09/2023 Results Created Date Observation Date Name Description Value Unit Range Abnormal Flag Note LastModifiedBy Organization Detail LastModifiedTime 02/18/2002/17/2023 CBC WBC 8.21 K/??L 3.98-1 0.04 Not Available [address], [address], 02/17/2023 10:45:22 02/18/20 23 02/17/2023 CBC RBC 4.61 M/??L 3.93-5 .22 Not Available [address], [address], 02/17/2023 10:45:22 02/18/20 23 02/17/2023 CBC HGB 13.5 g/dL 11.2-1 5.7 Not Available [address], [address], 02/17/2023 10:45:22 02/18/20 23 02/17/2023 CBC HCT 41.3 % 34.1-4 4.9 Not Available [address], [address], 02/17/2023 10:45:22 02/18/20 23 02/17/2023 CBC MCV 89.6 fL 79.4-9 4.8 Not Available [address], [address], 02/17/2023 10:45:22 02/18/20 23 02/17/2023 CBC MCH 29.3 pg 25.6-3 2.2 Not Available [address], [address], 02/17/2023 10:45:22 02/18/20 23 02/17/2023 CBC MCHC 32.7 g/dL 32.2-3 5.5 Not Available [address], [address], 02/17/2023 10:45:22 02/18/20 23 02/17/2023 CBC plt 268 K/??L 182-36 9 Not Available [address], [address], 02/17/2023 10:45:22 02/18/20 23 02/17/2023 CBC MPV 11.2 fL 9.4-12 .3 Not Available [address], [address], 02/17/2023 10:45:22 02/18/20 23 02/17/2023 CBC neut% 68.5 % 34.0-7 1.1 Not Available [address], [address], 02/17/2023 10:45:22 02/18/20 23 02/17/2023 CBC neut# 5.62 1.56-6 .13 Not Available [address], [address], 02/17/2023 10:45:22 02/18/20 23 02/17/2023 CBC lymph % 20.5 % 19.3-5 1.7 Not Available [address], [address], 02/17/2023 10:45:22 02/18/20 23 02/17/2023 CBC lymph # 1.68 K/??L 1.18-3 .74 Not Available [address], [address], 02/17/2023 10:45:22 02/18/20 23 02/17/2023 CBC mono% 6.2 % 4.7-12 .5 Not Available [address], [address], 02/17/2023 10:45:22 02/18/20 23 02/17/2023 CBC mono# 0.51 0.24-0 .56 Not Available [address], 84[address], 02/17/2023 10:45:22 02/18/20 23 02/17/2023 CBC eo% 3.9 % 0.7-5. 8 Not Available [address], 14[address], 02/17/2023 10:45:22 02/18/20 23 02/17/2023 CBC eo# 0.32 0.04-0 .36 Not Available [address], [address], 02/17/2023 10:45:22 02/18/20 23 02/17/2023 CBC baso% 0.7 % 0.1-1. 2 Not Available [address], [address], 02/17/2023 10:45:22 02/18/20 23 02/17/2023 CBC baso# 0.06 0.00-0 .08 Not Available [address], [address], 02/17/2023 10:45:22 02/18/20 23 02/17/2023 CBC RDW-CV 12.8 % 11.7-1 4.4 Not Available [address], [address], 02/17/2023 10:45:22 02/18/20 23 02/17/2023 CBC Ig% 0.200 % 0.000- 1.500 Ig % >0.5 Indic ates possi ble Left Shift Not Available [address], 213[address], 02/17/2023 10:45:22 02/18/20 23 02/17/2023 CBC Ig# 0.020 0.000- 0.093 Not Available [address], [address], 02/17/2023 10:45:22 02/18/20 23 02/17/2023 CBC NRBC% 0.0 % 0.0-0. 2 Not Available [address], [address]07, 02/17/2023 10:45:22 02/18/20 23 02/17/2023 CBC NRBC# 0.000 0.000- 0.012 Not Available [address], [address]055, 02/17/2023 10:45:22 02/18/20 23 02/17/2023 ESR sed rate 4.0 0.0-15 .0 Not Available [address], [address], 02/17/2023 11:56:45 02/18/20 23 02/17/2023 COMP. METAB OLIC PANEL glucose 78 mg/dL 70-100 Not Available [address], [address], 02/17/2023 13:58:39 02/18/20 23 02/17/2023 COMP. METAB OLIC PANEL BUN 13 mg/dL 7-18 Not Available [address], [address], 02/17/2023 13:58:39 02/18/20 23 02/17/2023 COMP. METAB OLIC PANEL creatinine 0.9 mg/dL 0.8-1. 3 Not Available [address], [address], 02/17/2023 13:58:39 02/18/20 23 02/17/2023 COMP. METAB OLIC PANEL B/C 14.4 ratio Not Available [address], [address]184, 02/17/2023 13:58:39 02/18/20 23 02/17/2023 COMP. METAB [...] be used in pregn yenny. Not Available [address], [address], 02/17/2023 13:58:39 02/18/20 23 02/17/2023 COMP. METAB OLIC PANEL sodium 140 mmol/ L 136-14 5 Not Available [address], [address], 02/17/2023 13:58:39 02/18/20 23 02/17/2023 COMP. METAB OLIC PANEL potassium 4.4 mmol/ L 3.5-5. 1 Not Available [address] [place], [address], 02/17/2023 13:58:39 02/18/20 23 02/17/2023 COMP. METAB OLIC PANEL chloride 104 mmol/ L 96-107 Not Available [address], [address], 02/17/2023 13:58:39 02/18/20 23 02/17/2023 COMP. METAB OLIC PANEL anion gap 12.7 5.0-15 .0 Not Available [address], 09339, 02/17/2023 13:58:39 02/18/20 23 02/17/2023 COMP. METAB OLIC PANEL CO2 23 mmol/ L 21-32 Not Available [address], 21263, 02/17/2023 13:58:39 02/18/20 23 02/17/2023 COMP. METAB OLIC PANEL calcium 8.9 mg/dL 8.5-10 .3 Not Available [address], 81099, 02/17/2023 13:58:39 02/18/20 23 02/17/2023 COMP. METAB OLIC PANEL total protein 7.0 g/dL 6.4-8. 2 Not Available [address], 09023, 02/17/2023 13:58:39 02/18/20 23 02/17/2023 COMP. METAB OLIC PANEL albumin 3.5 g/dL 3.4-5. 0 Not Available [address], 03872, 02/17/2023 13:58:39 02/18/20 23 02/17/2023 COMP. METAB OLIC PANEL globulin 3.5 g/dL Not Available [address], 25219, 02/17/2023 13:58:39 02/18/20 23 02/17/2023 COMP. METAB OLIC PANEL A/G 1.0 ratio 0.8-2. 0 Not Available [address], 33947, 02/17/2023 13:58:39 02/18/20 23 02/17/2023 COMP. METAB OLIC PANEL total bilirubin 0.30 mg/dL 0.00-1 .00 Not Available [address], 99425, 02/17/2023 13:58:39 02/18/20 23 02/17/2023 COMP. METAB OLIC PANEL AST 11 U/L 0-37 Not Available [address], 81353, 02/17/2023 13:58:39 02/18/20 23 02/17/2023 COMP. METAB OLIC PANEL ALT 23 U/L 6-63 Not Available [address], 32035, 02/17/2023 13:58:39 02/18/20 23 02/17/2023 COMP. METAB OLIC PANEL alk. phos. 44 U/L 50-136 low Not Available [address], 65961, 02/17/2023 13:58:39 02/18/20 23 02/27/2023 C-BEN CTIVE PROTE IN C-reactive protein 20.2 mg/L <8.0 high Not Available [facility] [address], [place], [address], 02/27/2023 18:29:07 03/17/2003/17/2023 POCST REP strep A POC NEGATI VE Not Available [facility] [address] [place] [address], [address], 03/17/2023 17:36:42 03/17/20 23 03/20/2023 CULTU RE, THROA T culture, throat CULTU RE, THROA T Micro Numbe r: [id number] Test Statu s: Final Speci men Sourc e: Throa t Speci men Quali ty: Adequ ate Resul t: No oroph aryng eal patho gens recov ered. Not Available [facility] [address], [place], [address], 03/20/2023 10:13:36 06/09/2006/09/2023 AMYLA SE amylase 73 U/L 25-115 Not Available [address], [address], 06/09/2023 15:05:52 06/09/20 23 06/09/2023 LIPAS E lipase 73 U/L 16-77 Not Available [address], [address], 06/09/2023 15:05:53 06/09/20 23 06/09/2023 C-BEN CTIVE PROTE IN (RCRP ) C-reactive protein (rcrp) 22.9 mg/dL 0.5-9. 0 high Not Available [address], 86332, 06/09/2023 15:05:54 07/17/20 23 07/17/2023 CBC WBC 7.22 K/??L 3.98-1 0.04 Not Available [address], [address]39, 07/17/2023 12:42:34 07/17/20 23 07/17/2023 CBC RBC 4.64 M/??L 3.93-5 .22 Not Available [address], 90199, 07/17/2023 12:42:34 07/17/20 23 07/17/2023 CBC HGB 13.7 g/dL 11.2-1 5.7 Not Available [address], 34961, 07/17/2023 12:42:34 07/17/20 23 07/17/2023 CBC HCT 41.7 % 34.1-4 4.9 Not Available [address], 81513, 07/17/2023 12:42:34 07/17/20 23 07/17/2023 CBC MCV 89.9 fL 79.4-9 4.8 Not Available [address], 02367, 07/17/2023 12:42:34 07/17/20 23 07/17/2023 CBC MCH 29.5 pg 25.6-3 2.2 Not Available [address], 97849, 07/17/2023 12:42:34 07/17/20 23 07/17/2023 CBC MCHC 32.9 g/dL 32.2-3 5.5 Not Available [address], 99787, 07/17/2023 12:42:34 07/17/20 23 07/17/2023 CBC plt 274 K/??L 182-36 9 Not Available [address], 28526, 07/17/2023 12:42:34 07/17/20 23 07/17/2023 CBC MPV 10.9 fL 9.4-12 .3 Not Available [address], 63977, 07/17/2023 12:42:34 07/17/20 23 07/17/2023 CBC neut% 71.3 % 34.0-7 1.1 high Not Available [address], 41765, 07/17/2023 12:42:34 07/17/20 23 07/17/2023 CBC neut# 5.15 1.56-6 .13 Not Available [address], 44184, 07/17/2023 12:42:34 07/17/20 23 07/17/2023 CBC lymph % 18.3 % 19.3-5 1.7 low Not Available [address], 28466, 07/17/2023 12:42:34 07/17/20 23 07/17/2023 CBC lymph # 1.32 K/??L 1.18-3 .74 Not Available [address], 73195, 07/17/2023 12:42:34 07/17/20 23 07/17/2023 CBC mono% 6.5 % 4.7-12 .5 Not Available [address], 81462, 07/17/2023 12:42:34 07/17/20 23 07/17/2023 CBC mono# 0.47 0.24-0 .56 Not Available [address], 49757, 07/17/2023 12:42:34 07/17/20 23 07/17/2023 CBC eo% 2.5 % 0.7-5. 8 Not Available [address], 01683, 07/17/2023 12:42:34 07/17/20 23 07/17/2023 CBC eo# 0.18 0.04-0 .36 Not Available [address], 88389, 07/17/2023 12:42:34 07/17/20 23 07/17/2023 CBC baso% 1.0 % 0.1-1. 2 Not Available [address], 94230, 07/17/2023 12:42:34 07/17/20 23 07/17/2023 CBC baso# 0.07 0.00-0 .08 Not Available [address], 01154, 07/17/2023 12:42:34 07/17/20 23 07/17/2023 CBC RDW-CV 12.4 % 11.7-1 4.4 Not Available [address], 90607, 07/17/2023 12:42:34 07/17/20 23 07/17/2023 CBC Ig% 0.400 % 0.000- 1.500 Ig % >0.5 Indic ates possi ble Left Shift Not Available [address], [address]42, 07/17/2023 12:42:34 07/17/20 23 07/17/2023 CBC Ig# 0.030 0.000- 0.093 Not Available [address], 47540, 07/17/2023 12:42:34 07/17/20 23 07/17/2023 CBC NRBC% 0.0 % 0.0-0. 2 Not Available [address], 01972, 07/17/2023 12:42:34 07/17/20 23 07/17/2023 CBC NRBC# 0.000 0.000- 0.012 Not Available [address], 47[address], 07/17/2023 12:42:34 07/17/20 23 07/17/2023 C-BEN CTIVE PROTE IN (RCRP ) C-reactive protein (rcrp) 14.4 mg/dL 0.5-9. 0 high Not Available [address], 01382, 07/17/2023 14:56:00 07/17/20 23 07/20/2023 TSH TSH 2.78 uIU/m L 0.50-6 .00 The Ameri can Colle ge of Endoc rinol ogy and Ameri can Thyro id Assoc iatio n recom mend goal TSH value s betwe en 0.4-4 .0 mIU/m L. Not Available [address], [address], 07/20/2023 12:43:09 07/17/20 23 07/21/2023 COMP. METAB OLIC PANEL glucose 83 mg/dL 70-100 Not Available [address], [address], 07/21/2023 11:48:31 07/17/20 23 07/21/2023 COMP. METAB OLIC PANEL BUN 12 mg/dL 7-18 Not Available [address], 8[address]60, 07/21/2023 11:48:31 07/17/20 23 07/21/2023 COMP. METAB OLIC PANEL creatinine 0.8 mg/dL 0.8-1. 3 Not Available [address], 87589, 07/21/2023 11:48:31 07/17/20 23 07/21/2023 COMP. METAB OLIC PANEL B/C 15.0 ratio Not Available [address], 91742, 07/21/2023 11:48:31 07/17/20 23 07/21/2023 COMP. METAB [...] borat ion (CKD- EPI) Equat ion (Eliceo kumar et. al 2020) as recom elsie d by the [facility] ation . eGFR is based on age, serum creat inine , and sex. CKD-E PI does not calcu late eGFR by race, does not apply to child rico (age <18 years ), and shoul d not be used in pregn yenny. Not Available [address], [address], 07/21/2023 11:48:31 07/17/20 23 07/21/2023 COMP. METAB OLIC PANEL sodium 140 mmol/ L 136-14 5 Not Available [address], 72978, 07/21/2023 11:48:31 07/17/20 23 07/21/2023 COMP. METAB OLIC PANEL potassium 4.8 mmol/ L 3.5-5. 1 Not Available [address], 57724, 07/21/2023 11:48:31 07/17/20 23 07/21/2023 COMP. METAB OLIC PANEL chloride 104 mmol/ L 96-107 Not Available [address], 65550, 07/21/2023 11:48:31 07/17/20 23 07/21/2023 COMP. METAB OLIC PANEL anion gap 10.4 5.0-15 .0 Not Available [address], 36258, 07/21/2023 11:48:31 07/17/20 23 07/21/2023 COMP. METAB OLIC PANEL CO2 26 mmol/ L 21-32 Not Available [address], 40808, 07/21/2023 11:48:31 07/17/20 23 07/21/2023 COMP. METAB OLIC PANEL calcium 8.8 mg/dL 8.5-10 .3 Not Available [address], 13198, 07/21/2023 11:48:31 07/17/20 23 07/21/2023 COMP. METAB OLIC PANEL total protein 7.1 g/dL 6.4-8. 2 Not Available [address], [address]59, 07/21/2023 11:48:31 07/17/20 23 07/21/2023 COMP. METAB OLIC PANEL albumin 3.7 g/dL 3.4-5. 0 Not Available [address], 95906, 07/21/2023 11:48:31 07/17/20 23 07/21/2023 COMP. METAB OLIC PANEL globulin 3.4 g/dL Not Available [address], 86689, 07/21/2023 11:48:31 07/17/20 23 07/21/2023 COMP. METAB OLIC PANEL A/G 1.1 ratio 0.8-2. 0 Not Available [address], [address]21, 07/21/2023 11:48:31 07/17/20 23 07/21/2023 COMP. METAB OLIC PANEL total bilirubin 0.20 mg/dL 0.00-1 .00 Not Available [address], 29218, 07/21/2023 11:48:31 07/17/20 23 07/21/2023 COMP. METAB OLIC PANEL AST 15 U/L 0-37 Not Available [address], 7[address], 07/21/2023 11:48:31 07/17/20 23 07/21/2023 COMP. METAB OLIC PANEL ALT 25 U/L 6-63 Not Available [address], [address]44, 07/21/2023 11:48:31 07/17/20 23 07/21/2023 COMP. METAB OLIC PANEL alk. phos. 50 U/L 50-136 Not Available [address], [place], [address], 07/21/2023 11:48:31 07/17/20 23 07/21/2023 TISSU E TRANS GLUTA EMILIANO E AB, IGA tissue transglutami nase Ab, IgA <1.0 U/mL normal Value Inter preta tion ----- ----- ----- ---- <15.0 Antib jaswinder not detec placido > or = 15.0 Antib jaswinder detec placido Not Available [facility] [address], [address], 07/21/2023 18:49:47 07/17/2007/21/2023 IMMUN OGLOB ULIN A immunoglobul in A 207 mg/dL 47-310 normal Not Available [facility] [address], [address], 07/21/2023 18:49:50 07/20/2007/28/2023 OVA AND ROMY ITES, CONC AND PERM SMEAR ova and parasites, conc and perm smear OVA AND ROMY ITES, CONC AND PERM SMEAR Micro Numbe r: [id number] Test Statu s: Final Speci men [...] e refer to https ://ed ucati on.qu lizePantry/f aq/FA Q203 (This link is being provi ded for infor matio nal/ educa namrata l purpo ses only. ) Not Available [facility] [address], [place], [address], 07/28/2023 16:13:30 07/20/20 23 07/28/2023 SALMO KEYSHAWN /SHIG SOCORRO CULT, CAMPY EIA AND SHIGA TOXIN W/RFL E. COLI O157 CULT campylobacte r spp. Ag,EIA CAMPY LOBAC TER SPP. AG,EI A Micro Numbe r: [id number] Test Statu s: Final Speci men Sourc e: Fecal Speci men Quali ty: Adequ ate Campy Ag Resul t: Not Detec placido Refer ence Range : Not Detec placido Not Available [facility] [address], [place], [address], 07/28/2023 16:13:31 07/20/20 23 07/28/2023 SALMO KEYSHAWN /SHIG SOCORRO CULT, CAMPY EIA AND SHIGA TOXIN W/RFL E. COLI O157 CULT shiga toxins, EIA w/rfl to E.coli O157 culture SHIGA TOXIN S, EIA W/RFL TO E.COL I O157 CULTU RE Micro Numbe r: [id number] Test Statu s: Final Speci men Sourc e: Fecal Speci men Quali ty: Adequ ate Shiga Toxin : Not Detec placido Refer ence Range : Not Detec placido Not Available [facility] [address], [place], [address], 07/28/2023 16:13:31 07/20/20 23 07/28/2023 SALMO KEYSHAWN /SHIG SOCORRO CULT, CAMPY EIA AND SHIGA TOXIN W/RFL E. COLI O157 CULT salmonella and shigella, culture SALMO KEYSHAWN AND SHIGE LLA, CULTU RE Micro Numbe r: [id number] Test Statu s: Final Speci men Sourc e: Fecal Speci men Quali ty: Adequ ate Resul t: No Salmo keyshawn or Shige lla isola placido Not Available [facility] [address], [place], [address], 07/28/2023 16:13:31 07/20/20 23 07/28/2023 FECAL FAT, QUALI TATIV E fecal fat, qualitative NORMAL normal Not Available [facility] [address], [place], [address], 07/28/2023 16:13:33 07/21/20 23 07/26/2023 GIARD IA AG, EIA, STOOL giardia Ag, EIA, stool GIARD IA AG, EIA, STOOL Micro Numbe r: [id number] Test Statu s: Final Speci men [...] itic infec tion. Not Available [facility] [address], [place], [address], 07/26/2023 10:02:25 07/21/2007/26/2023 OVA AND ROMY ITES, CONC AND PERM SMEAR ova and parasites, conc and perm smear OVA AND ROMY ITES, CONC AND PERM SMEAR Micro Numbe r: [id number] Test Statu s: Final Speci men Sourc e: Stool Speci men Quali ty: Adequ ate JAMIL NTRAT ION 1: No ova or roym ites seen TRICH CRISTOFER 1: No ova [...] e refer to https ://ed ucati on.qu webtide. com/f aq/FA Q203 (This link is being provi ded for infor manas polanco/ educa namrata l purpo ses only. ) Not Available [facility] [address], [address], 07/26/2023 10:02:26 07/22/20 23 07/29/2023 OVA AND ROMY ITES, CONC AND PERM SMEAR ova and parasites, conc and perm smear OVA AND ROMY ITES, CONC AND PERM SMEAR Micro Numbe r: [id number] Test Statu s: Final Speci men [...] infor bertha lainez e refer to https ://[employer] on.qu [place] [facility] [employer] [employer]. com/f aq/FA Q203 (This link is being provi ded for infor manas polanco/ educa namrata l purpo ses only. ) Not Available [facility] [address], [place], [address], 07/29/2023 15:13:35 07/27/2007/28/2023 ANATO MAEVE PATHO LOGY path report [facility] [address] [facility] [place] [address] Lab Direc tor: Raquel dee MD Surgi tasha Patho logy Repor t Acces anayeli #: [id number] FINAL PATHO LOGIC DIAGN OSIS: A. DUODE [...] Lumin lynn benavides MD By his/h er radhika mojica above , the patho logis t kurt d as verna nieto the Final Diagn osis [...] DN 07/27 Gross ing Staff : ELISSA moreno Name: RAQUEL VELAZQUEZ : [birth year] (Age: 33) Sex: F 6 Insti tutio n: [facility] Locat ion: [facility] Date of Opera tion: 07/27 Date of Acces anayeli: 07/27 Repor placido: 07/28 15:35 Resul ts To: Jerome alonso MD, AB Jerome Noriega MD, BS Dean y Medic al Speci altie s Not Available [facility] (Outpatient) [address] [place] [address], [address], 07/28/2023 16:29:08 09/08/19 24 09/08/2023 ESR sed rate 6.0 0.0-15 .0 Not Available [address], [address], 09/08/2023 11:10:42 09/08/19 24 09/08/2023 C-BEN CTIVE PROTE IN (RCRP ) C-reactive protein (rcrp) 15.9 mg/dL 0.5-9. 0 high Not Available [address], [address], 09/08/2023 14:38:49 09/08/19 24 09/10/2023 RHEUM ATOID FACTO R rf-IgM NEG IU/mL negati ve normal Refer ence Range : < 6 IU/mL Negat junior >/=6 IU/mL Posit junior >/= 25 IU/mL is High Posit junior, sugge stive of Rheum atoid Arthr itis. Not Available [address], [address], 09/10/2023 11:15:54 09/08/19 24 09/13/2023 JESUS SCREE [...] JESUS Patte rns (http s://d oi.or g/[email or web address] 1515/ [facility]2017- [email or web address]) For addit ional infor bertha lainez e refer to http: //[facility] feli gandhi.Que stDia gnost ics.c om/fa q/FAQ 177 (This link is being provi ded for infor matio nal/ educa namrata mercer purpo ses only. ) Not Available [facility] [address] [place] [address], [place], [address], 09/13/2023 08:52:50 11/05/19 24 11/05/2023 CBC WBC 9.90 K/??L 3.98-1 0.04 Not Available [address], [address], 11/05/2023 12:21:47 11/05/19 24 11/05/2023 CBC RBC 4.46 M/??L 3.93-5 .22 Not Available [address], [address], 11/05/2023 12:21:47 11/05/19 24 11/05/2023 CBC HGB 13.3 g/dL 11.2-1 5.7 Not Available [address], [address], 11/05/2023 12:21:47 11/05/19 24 11/05/2023 CBC HCT 40.1 % 34.1-4 4.9 Not Available [address], [address], 11/05/2023 12:21:47 11/05/19 24 11/05/2023 CBC MCV 89.9 fL 79.4-9 4.8 Not Available [address], [address], 11/05/2023 12:21:47 11/05/19 24 11/05/2023 CBC MCH 29.8 pg 25.6-3 2.2 Not Available [address], [address], 11/05/2023 12:21:47 11/05/19 24 11/05/2023 CBC MCHC 33.2 g/dL 32.2-3 5.5 Not Available [address], [address], 11/05/2023 12:21:47 11/05/19 24 11/05/2023 CBC plt 268 K/??L 182-36 9 Not Available [address], [address], 11/05/2023 12:21:47 11/05/19 24 11/05/2023 CBC MPV 11.1 fL 9.4-12 .3 Not Available [address], [address], 11/05/2023 12:21:47 11/05/19 24 11/05/2023 CBC neut% 80.8 % 34.0-7 1.1 high Not Available [address], [address], 11/05/2023 12:21:47 11/05/19 24 11/05/2023 CBC neut# 7.99 1.56-6 .13 high Not Available [address], [address], 11/05/2023 12:21:47 11/05/19 24 11/05/2023 CBC lymph % 12.0 % 19.3-5 1.7 low Not Available [address], [address], 11/05/2023 12:21:47 11/05/19 24 11/05/2023 CBC lymph # 1.19 K/??L 1.18-3 .74 Not Available [address], [address], 11/05/2023 12:21:47 11/05/19 24 11/05/2023 CBC mono% 4.7 % 4.7-12 .5 Not Available [address], [address], 11/05/2023 12:21:47 11/05/19 24 11/05/2023 CBC mono# 0.47 0.24-0 .56 Not Available [address], [address], 11/05/2023 12:21:47 11/05/19 24 11/05/2023 CBC eo% 1.5 % 0.7-5. 8 Not Available [address], [address], 11/05/2023 12:21:47 11/05/19 24 11/05/2023 CBC eo# 0.15 0.04-0 .36 Not Available [address], [address], 11/05/2023 12:21:47 11/05/19 24 11/05/2023 CBC baso% 0.6 % 0.1-1. 2 Not Available [address], [address], 11/05/2023 12:21:47 11/05/19 24 11/05/2023 CBC baso# 0.06 0.00-0 .08 Not Available [address], [address], 11/05/2023 12:21:47 11/05/19 24 11/05/2023 CBC RDW-CV 12.6 % 11.7-1 4.4 Not Available [address], [address], 11/05/2023 12:21:47 11/05/19 24 11/05/2023 CBC Ig% 0.400 % 0.000- 1.500 Ig % >0.5 Indic ates possi ble Left Shift Not Available [address], [address], 11/05/2023 12:21:47 11/05/19 24 11/05/2023 CBC Ig# 0.040 0.000- 0.093 Not Available [address], [address], 11/05/2023 12:21:47 11/05/19 24 11/05/2023 CBC NRBC% 0.0 % 0.0-0. 2 Not Available [address], [address], 11/05/2023 12:21:47 11/05/19 24 11/05/2023 CBC NRBC# 0.000 0.000- 0.012 Not Available [address], [address], 11/05/2023 12:21:47 11/05/19 24 11/05/2023 ESR sed rate 9.0 0.0-15 .0 Not Available [address], [address], 11/05/2023 14:49:30 11/05/19 24 11/05/2023 BASIC METAB OLIC PANEL glucose 76 mg/dL 70-100 Not Available [address], [address], 11/05/2023 15:49:53 11/05/19 24 11/05/2023 BASIC METAB OLIC PANEL BUN 12 mg/dL 7-18 Not Available [address], [address], 11/05/2023 15:49:53 11/05/19 24 11/05/2023 BASIC METAB OLIC PANEL creatinine 0.8 mg/dL 0.8-1. 3 Not Available [address], [address], 11/05/2023 15:49:53 11/05/19 24 11/05/2023 BASIC METAB OLIC PANEL B/C 15.0 ratio Not Available [address], [address], 11/05/2023 15:49:53 11/05/1911/05/2023 BASIC METAB OLIC PANEL [...] be used in pregn yenny. Not Available [address], [address], 11/05/2023 15:49:53 11/05/19 24 11/05/2023 BASIC METAB OLIC PANEL sodium 140 mmol/ L 136-14 5 Not Available [address] [place], [address], 11/05/2023 15:49:53 11/05/19 24 11/05/2023 BASIC METAB OLIC PANEL potassium 4.5 mmol/ L 3.5-5. 1 Not Available [address], [address], 11/05/2023 15:49:53 11/05/19 24 11/05/2023 BASIC METAB OLIC PANEL chloride 103 mmol/ L 96-107 Not Available [address], [address], 11/05/2023 15:49:53 11/05/19 24 11/05/2023 BASIC METAB OLIC PANEL anion gap 12.0 5.0-15 .0 Not Available [address], [address], 11/05/2023 15:49:53 11/05/19 24 11/05/2023 BASIC METAB OLIC PANEL CO2 25 mmol/ L 21-32 Not Available [address], [address], 11/05/2023 15:49:53 11/05/19 24 11/05/2023 BASIC METAB OLIC PANEL calcium 9.2 mg/dL 8.5-10 .3 Not Available [address], [address], 11/05/2023 15:49:53 11/05/19 24 11/05/2023 LIPID PANEL cholesterol 197 mg/dL <200 mg/dl Jack able 200-2 39 mg/dl Borde rline High >240 mg/dl High Not Available [address], [address], 11/05/2023 15:49:55 11/05/19 24 11/05/2023 LIPID PANEL triglyceride s 114 mg/dL <150 mg/dL Claudine l 150-1 99 mg/dL Borde rline High 200-4 99 mg/dL High >500 mg/dL Very High Not Available [address], [address], 11/05/2023 15:49:55 11/05/19 24 11/05/2023 LIPID PANEL direct HDL 79 mg/dL <40 mg/dl - Major Risk for CHD >60 mg/dl - Negat junior Risk for CHD Not Available [address], [address], 11/05/2023 15:49:55 11/05/19 24 11/05/2023 C-BEN CTIVE PROTE IN (RCRP ) C-reactive protein (rcrp) 11.3 mg/dL 0.5-9. 0 high Not Available [address], [address], 11/05/2023 15:49:56 11/05/19 24 11/05/2023 LDL - [...] r is not necelizabeth sai. Not Available [address], [address], 11/05/2023 15:49:57 01/20/20 24 01/20/2024 PROTI ME PT 10.6 secon ds 9.0-10 .4 high Not Available [address], [address], 01/20/2024 10:36:45 01/20/20 24 01/20/2024 PROTI ME INR 1.1 0.9-1. [address]ed Value of 2.0-3 .0 for proph ylaxi s of Venou s Thomb osis, and preve ntion of Embol ism. Sugge sted Value of 2.5-3 .5 for preve ntion of Recur rent Embol ism or patie nts with Mecha nical Prost hetic Heart Valve s. Not Available [address], [address], 01/20/2024 10:36:45 01/20/20 24 01/20/2024 APTT PTT 25 secon ds 23-31 Not Available [address], [address], 01/20/2024 10:36:47 01/20/20 24 01/20/2024 CBC WBC 7.32 K/??L 3.98-1 0.04 Not Available [address], [address], 01/20/2024 10:43:11 01/20/20 24 01/20/2024 CBC RBC 4.69 M/??L 3.93-5 .22 Not Available [address], [address], 01/20/2024 10:43:11 01/20/20 24 01/20/2024 CBC HGB 13.8 g/dL 11.2-1 5.7 Not Available [address], [address], 01/20/2024 10:43:11 01/20/20 24 01/20/2024 CBC HCT 42.2 % 34.1-4 4.9 Not Available [address], [address], 01/20/2024 10:43:11 01/20/20 24 01/20/2024 CBC MCV 90.0 fL 79.4-9 4.8 Not Available [address], [address], 01/20/2024 10:43:11 01/20/20 24 01/20/2024 CBC MCH 29.4 pg 25.6-3 2.2 Not Available [address], [address], 01/20/2024 10:43:11 01/20/20 24 01/20/2024 CBC MCHC 32.7 g/dL 32.2-3 5.5 Not Available [address], [address], 01/20/2024 10:43:11 01/20/20 24 01/20/2024 CBC plt 246 K/??L 182-36 9 Not Available [address], [address], 01/20/2024 10:43:11 01/20/20 24 01/20/2024 CBC MPV 11.2 fL 9.4-12 .3 Not Available [address], [address], 01/20/2024 10:43:11 01/20/20 24 01/20/2024 CBC neut% 70.2 % 34.0-7 1.1 Not Available [address], [address], 01/20/2024 10:43:11 01/20/20 24 01/20/2024 CBC neut# 5.14 1.56-6 .13 Not Available [address], [address], 01/20/2024 10:43:11 01/20/20 24 01/20/2024 CBC lymph % 17.6 % 19.3-5 1.7 low Not Available [address], [address], 01/20/2024 10:43:11 01/20/20 24 01/20/2024 CBC lymph # 1.29 K/??L 1.18-3 .74 Not Available [address], [address], 01/20/2024 10:43:11 01/20/20 24 01/20/2024 CBC mono% 7.4 % 4.7-12 .5 Not Available [address], [address], 01/20/2024 10:43:11 01/20/20 24 01/20/2024 CBC mono# 0.54 0.24-0 .56 Not Available [address], [address], 01/20/2024 10:43:11 01/20/20 24 01/20/2024 CBC eo% 3.4 % 0.7-5. 8 Not Available [address], [address], 01/20/2024 10:43:11 01/20/20 24 01/20/2024 CBC eo# 0.25 0.04-0 .36 Not Available [address], [address], 01/20/2024 10:43:11 01/20/20 24 01/20/2024 CBC baso% 1.1 % 0.1-1. 2 Not Available [address], [address], 01/20/2024 10:43:11 01/20/20 24 01/20/2024 CBC baso# 0.08 0.00-0 .08 Not Available [address], [address], 01/20/2024 10:43:11 01/20/20 24 01/20/2024 CBC RDW-CV 13.1 % 11.7-1 4.4 Not Available [address], [address], 01/20/2024 10:43:11 01/20/20 24 01/20/2024 CBC Ig% 0.300 % 0.000- 1.500 Ig % >0.5 Indic ates possi ble Left Shift Not Available [address], [address], 01/20/2024 10:43:11 01/20/20 24 01/20/2024 CBC Ig# 0.020 0.000- 0.093 Not Available [address], [address], 01/20/2024 10:43:11 01/20/20 24 01/20/2024 CBC NRBC% 0.0 % 0.0-0. 2 Not Available [address], [address], 01/20/2024 10:43:11 01/20/20 24 01/20/2024 CBC NRBC# 0.000 0.000- 0.012 Not Available [address], [address], 01/20/2024 10:43:11 01/20/20 24 01/20/2024 ESR sed rate 5.0 0.0-15 .0 Not Available [address], [address], 01/20/2024 11:39:20 01/20/20 24 01/20/2024 COMP. METAB OLIC PANEL glucose 76 mg/dL 70-100 Not Available [address], [address], 01/20/2024 14:31:39 01/20/20 24 01/20/2024 COMP. METAB OLIC PANEL BUN 13 mg/dL 7-18 Not Available [address], [address], 01/20/2024 14:31:39 01/20/20 24 01/20/2024 COMP. METAB OLIC PANEL creatinine 0.7 mg/dL 0.8-1. 3 low Not Available [address], [address], 01/20/2024 14:31:39 01/20/20 24 01/20/2024 COMP. METAB OLIC PANEL B/C 18.6 ratio Not Available [address], [address], 01/20/2024 14:31:39 01/20/20 24 01/20/2024 COMP. METAB [...] be used in pregn yenny. Not Available [address], [address], 01/20/2024 14:31:39 01/20/20 24 01/20/2024 COMP. METAB OLIC PANEL sodium 142 mmol/ L 136-14 5 Not Available [address], [address], 01/20/2024 14:31:39 01/20/20 24 01/20/2024 COMP. METAB OLIC PANEL potassium 4.4 mmol/ L 3.5-5. 1 Not Available [address], [address], 01/20/2024 14:31:39 01/20/20 24 01/20/2024 COMP. METAB OLIC PANEL chloride 104 mmol/ L 96-107 Not Available [address], [address], 01/20/2024 14:31:39 01/20/20 24 01/20/2024 COMP. METAB OLIC PANEL anion gap 13.6 5.0-15 .0 Not Available [address], [address], 01/20/2024 14:31:39 01/20/20 24 01/20/2024 COMP. METAB OLIC PANEL CO2 24 mmol/ L 21-32 Not Available [address], [address], 01/20/2024 14:31:39 01/20/20 24 01/20/2024 COMP. METAB OLIC PANEL calcium 8.8 mg/dL 8.5-10 .3 Not Available [address], [address], 01/20/2024 14:31:39 01/20/20 24 01/20/2024 COMP. METAB OLIC PANEL total protein 7.1 g/dL 6.4-8. 2 Not Available [address], [address], 01/20/2024 14:31:39 01/20/20 24 01/20/2024 COMP. METAB OLIC PANEL albumin 3.9 g/dL 3.4-5. 0 Not Available [address], [address], 01/20/2024 14:31:39 01/20/20 24 01/20/2024 COMP. METAB OLIC PANEL globulin 3.2 g/dL Not Available [address], [address], 01/20/2024 14:31:39 01/20/20 24 01/20/2024 COMP. METAB OLIC PANEL A/G 1.2 ratio 0.8-2. 0 Not Available [address], [address], 01/20/2024 14:31:39 01/20/20 24 01/20/2024 COMP. METAB OLIC PANEL total bilirubin 0.40 mg/dL 0.00-1 .00 Not Available [address], [address], 01/20/2024 14:31:39 01/20/20 24 01/20/2024 COMP. METAB OLIC PANEL AST 16 U/L 0-37 Not Available [address], [address], 01/20/2024 14:31:39 01/20/20 24 01/20/2024 COMP. METAB OLIC PANEL ALT 43 U/L 6-63 Not Available [address], [address], 01/20/2024 14:31:39 01/20/20 24 01/20/2024 COMP. METAB OLIC PANEL alk. phos. 60 U/L 50-136 Not Available [address], [address], 01/20/2024 14:31:39 01/20/20 24 01/20/2024 LIPID PANEL cholesterol 165 mg/dL <200 mg/dl Jack able 200-2 39 mg/dl Borde rline High >240 mg/dl High Not Available [address], [address], 01/20/2024 14:31:40 01/20/20 24 01/20/2024 LIPID PANEL triglyceride s 57 mg/dL <150 mg/dL Claudine l 150-1 99 mg/dL Borde rline High 200-4 99 mg/dL High >500 mg/dL Very High Not Available [address], [address], 01/20/2024 14:31:40 01/20/20 24 01/20/2024 LIPID PANEL direct HDL 64 mg/dL <40 mg/dl - Major Risk for CHD >60 mg/dl - Negat junior Risk for CHD Not Available [address], [address], 01/20/2024 14:31:40 01/20/20 24 01/20/2024 LDL - [...] with 0-1 risk facto r is not neces sai. Not Available [address], [address], 01/20/2024 14:31:41 01/20/20 24 01/20/2024 C-BEN CTIVE PROTE IN (RCRP ) C-reactive protein (rcrp) 4.7 mg/dL 0.5-9. 0 Not Available [address], [address], 01/20/2024 14:52:40 01/20/20 24 01/30/2024 HOMOC YSTEI [...] 1999; 131(5 ):331 -9. Not Available [facility] [place] [facility] [address] [place], [place], [address], 01/30/2024 05:02:40 01/20/20 24 01/30/2024 ACTIV ATED PROTE IN C RESIS TANCE activated protein C resistance 5.7 ratio >=2.1 Ratio s >=2.1 : Negat junior for the Facto r V Leide n pheno type. Not Available [facility] [place] [facility] [address] [place], [place], [address], 01/30/2024 05:02:41 01/20/20 24 01/30/2024 PROTE IN S, ACTIV ITY protein S, activity 71 %_nor mal 60-140 Not Available [facility] [place] [facility] [address] [place], [place], [address], 01/30/2024 05:02:42 01/20/20 24 01/30/2024 LUPUS ANTIC OAGUL ANT EVALU ATION WITH REFLE X lupus anticoagulan t SEE NOTE A Lupus Antic oagul ant is not detec placido. Refer ence Range : Not Detec placido For addit ional infor bertha lainez e refer to http: //[facility] feli gandhi.que stdia gnost ics.c om/fa q/FAQ 01v2 (This link is being provi ded for infor manas polanco/ educdesean ott l purpo ses only. ) This inter preta tion is based on the follo wing test resul ts. Not Available [facility] [place] [facility] [address] [place], [place], [address], 01/30/2024 05:02:42 01/20/20 24 01/30/2024 LUPUS ANTIC OAGUL ANT EVALU ATION WITH REFLE X PTT-la screen 32 sec <=40 Not Available [facility] [place] [facility] [address] [place], [place], [address], 01/30/2024 05:02:42 01/20/20 24 01/30/2024 LUPUS ANTIC OAGUL ANT EVALU ATION WITH REFLE X drvvt screen 40 sec <=45 Not Available [facility] [place] [facility] [address], [place], [address], 01/30/2024 05:02:42 01/20/20 24 01/30/2024 ANTIT HROMB IN III ACTIV ITY antithrombin III activity 95 %_nor mal 80-135 Not Available [facility] [place] [facility] [address], [place], [address], 01/30/2024 05:02:43 01/20/20 24 01/30/2024 PROTE IN C, ACTIV ITY protein C, activity 98 %_nor mal 70-180 Not Available [facility] [place] [facility] [address], [place], [address], 01/30/2024 05:02:43 01/20/20 24 01/30/2024 ANTIP HOSPH OLIPI D ANTIB JASWINDER PANEL comment SEE NOTE The antip hosph olipi d antib jaswinder syndr ome (APS) is a clini tasha-p [...] ional infor bertha lainez refer to http: //[facility] feli arroyo stdia gnost ics.c om/fa q/FAQ 109 (This link is being provi ded for infor manas polanco/ educa namrata l purpo ses only. ) Not Available [facility] [place] [facility] [address], [address], 01/30/2024 05:02:44 01/20/2001/30/2024 ANTIP HOSPH OLIPI D ANTIB JASWINDER PANEL B2 glycoprotein I (IgG)Ab <2.0 U/mL <20.0 Value Inter preta tion ----- ----- ----- ---- < 20.0 Antib jaswinder not detec placido > or = 20.0 Antib jaswinder detec placido Not Available [facility] [place] [facility] [address], [address], 01/30/2024 05:02:44 01/20/20 24 01/30/2024 ANTIP HOSPH OLIPI D ANTIB JASWINDER PANEL B2 glycoprotein I (IgA)Ab <2.0 U/mL <20.0 Value Inter preta tion ----- ----- ----- ---- < 20.0 Antib jaswinder not detec placido > or = 20.0 Antib jaswinder detec placido Not Available [facility] [place] [facility] [address], [address], 01/30/2024 05:02:44 01/20/20 24 01/30/2024 ANTIP HOSPH OLIPI D ANTIB JASWINDER PANEL B2 glycoprotein I (IgM)Ab <2.0 U/mL <20.0 Value Inter preta tion ----- ----- ----- ---- < 20.0 Antib jaswinder not detec placido > or = 20.0 Antib jaswinder detec placido Not Available [facility] [place] [facility] [address], [address], 01/30/2024 05:02:44 01/20/20 24 01/30/2024 ANTIP HOSPH OLIPI D ANTIB JASWINDER PANEL phosphatidyl serine/ prothrombin Ab (IgG) <9 U <=30 For addit ional flashr bertha lainez refer to http: //[facility].Tony stDia gnost ics.c om/fa q/FAQ 262 (This link is being provi ded for infor matio nal/ educa namrata l purpo ses only. ) Not Available [facility] [place] [facility] [address], [address], 01/30/2024 05:02:44 01/20/20 24 01/30/2024 ANTIP HOSPH OLIPI D ANTIB JASWINDER PANEL phosphatidyl serine/ prothrombin Ab (IgM) <9 U <=30 For addit ional bertha churchill refer to http: //[facility] gandhi.Tony stDia gnost ics.c om/fa q/FAQ 262 (This link is being provi ded for infor matio nal/ educa namrata l purpo ses only. ) Not Available [facility] [place] [facility] [address], [address], 01/30/2024 05:02:44 01/20/20 24 01/30/2024 ANTIP HOSPH OLIPI D ANTIB JASWINDER PANEL cardiolipin Ab (IgA) <2.0 apl-U /mL <20.0 Value Inter preta tion ----- ----- ----- ---- < 20.0 Antib jaswinder not detec placido > or = 20.0 Antib jaswinder detec placido Not Available [facility] [place] [facility] [address] [place], [address], 01/30/2024 05:02:44 01/20/20 24 01/30/2024 ANTIP HOSPH OLIPI D ANTIB JASWINDER PANEL cardiolipin Ab (IgG) <2.0 gpl-U /mL <20.0 Value Inter preta tion ----- ----- ----- ---- < 20.0 Antib jaswinder not detec placido > or = 20.0 Antib jaswinder detec placido Not Available [facility] [address], [address], 01/30/2024 05:02:44 01/20/20 24 01/30/2024 ANTIP HOSPH OLIPI D ANTIB JASWINDER PANEL cardiolipin Ab (IgM) <2.0 mpl-U /mL <20.0 Value Inter preta tion ----- ----- ----- ---- < 20.0 Antib jaswinder not detec placido > or = 20.0 Antib jaswinder detec placido Not Available [facility] [address], [address], 01/30/2024 05:02:44 01/20/20 24 01/30/2024 JESUS SCREE [...] infor bertha lainez e refer to http: //[facility] feli Arroyo stDia gnost ics.c om/fa q/FAQ 177 (This link is being provi ded for infor mattaurus poalnco/ educa namrata l purpo ses only. ) Not Available [facility] [place] [facility] [address], [place], [address], 01/30/2024 05:02:44 09/28/19 24 09/28/2023 XR, wrist CLINIC AL HISTOR Y: Right wrist pain. No trauma . TECHNI QUE: Three views of the right wrist obtain ed. COMPAR REMINGTON: None. FINDIN GS: There is no acute fractu re, sublux ation, or disloc ation. The soft tissue s are unrema rkable . IMPRES ANAYELI: No acute bone abnorm ality. Readin g Physic rocío: Buck Lee ms [facility] [place] (Imaging) [address] , [place], [address], 10/06/2023 09:51:25 11/05/19 24 11/05/2023 elect rocjosselyn [email or web address] am No observ ation record ed. [facility] [place] [address] [place], [address], 11/05/2023 16:29:34 11/05/19 24 elect rocar diogr am No observ ation record ed. [email or web address] Not Available 2023 10:52:52 09/13/19 25 09/13/2024 XR, forea rm No observ ation record ed. [facility] [address] [facility], [place], [address], 09/13/2024 21:01:14 Result Notes None recorded. Procedures Surgical History Date Name Laterality Status Provider Name and Address Organization Details Recorded Time 3 Ness - EGD completed Jerome Arzola MD [address] [place] [address], [phone], [facility] 07/27/2023 09:23:46 3 Ness - Colonoscopy completed Jerome Arzola MD [address] [place] [address], [phone], [facility] 07/27/2023 09:24:47 Imaging Results Imaging Date Name Status LastModified by Organization Details LastModified Time 09/28/2023 XR, wrist completed [facility] [place] [facility]) [address], [place], [address], 10/06/2023 09:51:25 11/05/2023 electrocardiogram completed [address], [address], 11/05/2023 16:29:34 11/05/2023 electrocardiogram completed Informa tion not available 11/05/2023 10:52:52 09/13/2024 XR, forearm active [facility] [address] [place] [address], [address], 09/13/2024 21:01:14 Procedure Notes None recorded. Medical Equipment None Reported. Allergies Allergen ID Allergen Name Allergen Category Reaction Reaction Severity Criticality Documentation Date Start Date Code Code System Note Provider Name and Address Organization Details Recorded Time [id number] Pneumovax 23 medicatio n Not available Not available Not available 07/27/2023 07520 3 RxNorm Marizol Sher RN [facility] 3 08:56:17 Medications Name Sig Start Date Stop Date [...] Not Available Not Available Not Available Vitals None Recorded Social History Question Answer Notes LastModified by Organizat ion Details LastModified Time What Is Your Level Of Alcohol Consumption? [...] available 01/22/2016 Are You Currently Employed? Yes [email or web address] Information not available 08/22/2021 What Type Of Diet Are You Following? REGULAR Doing Better With Vegetables Information not available 01/22/2016 Which Illicit Or Recreational Drugs Have You Used? Marijuana Once Or Twice Week Has Medical Marijuana Card (asthma) Information not available 01/22/2016 What Is The Highest Grade Or Level Of School You Have Completed Or The Highest Degree You Have Received? 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 2 Information not available 02/04/2017 Are There Any Guns Present In Your Home? Yes Secured Information not available 01/22/2016 Do You Use Insect Repellent Routinely? Yes [email or web address] Information not available 08/22/2021 Live Alone Or With Others? With Others With Boyfriend, Fletcher Information not available 01/22/2016 Does The Patient Have Difficulty Speaking Nepali? No Information not available 01/22/2016 Does The Patient Have Difficulty Reading Nepali? No Information not available 01/22/2016 Patient Has Health Care Proxy Signed And In Chart Yes BF, Signed And In Chart 02/04/17 Information not available 02/04/2017 Marital Status Single [email or web address] Informatio n not available 02/04/2017 Mosquito Repellent Used Routinely Yes Information not available 01/22/2016 What Was The Date Of Your Most Recent Tobacco Screening? 06/23/2024 [email or web address] Information not available 06/23/2024 Are There Any Occupational Health Risks Where You Work? None Information not available 01/22/2016 What Is Your Relationship Status? Single Villa Information not available 08/22/2021 Do You Use Your Seat Belt Or Car Seat Routinely? Yes [email or web address] Information not available 08/22/2021 Seat Belts Used Routinely Yes Information not available 01/22/2016 Are You Sexually Active? Yes Information not available 01/22/2016 Smoke Alarm In Home Yes Information not available 01/22/2016 Do You Have Smoke And Carbon Monoxide Detectors In Your Home? Yes [email or web address] Information not available 08/22/2021 Are You Passively Exposed To Smoke? No [email or web address] Information not available 08/22/2021 What Types Of Sporting Activities Do You Participate In? None Information not available 01/22/2016 General Stress Level Medium Information not available 01/22/2016 Do You Use Any Illicit Or Recreational Drugs? Yes [email or web address] Information not available 08/22/2021 Do You Use Sunscreen Routinely? Yes Information not available 01/22/2016 Do You Or Have You Ever Used Any Other Forms Of Tobacco Or Nicotine? No [email or web address] Information not available 08/22/2021 How Many Days In The Past Year Have You Consumed 4 Or More Drinks? 0 Information not available 09/08/2023 Sex: Unknown Functional Status Question Answer Note LastModified by Organization D etails LastModified Time What is your exercise level? Moderate [email or web address] Information not available 08/22/2021 Mental Status None [...] GPAL:G 0 P 0 0 0 0 Past Encounters Encounter ID Performer Location Encounter Start Date Encounter Closed Date Diagnosis/Indication Diagnosis SNOMED-CT Code Diagnosis ICD10 Code Diagnosis Note [id number] LATHA Robert [facility], OFFICE [address] [place] [id number] 01/22/2016 08:38:48 01/22/2016 09:31:38 [id number] LATHA Robert [facility], OFFICE [address] [place] [id number] 03/19/2016 09:42:36 03/19/2016 10:13:20 [id number] Tara Yang MD FP, [facility], OFFICE [address] [facility] [place] [address] 04/16/2016 10:06:34 04/16/2016 11:07:11 [id number] Caryn Laura NP FP, C, OFFICE [address] [facility] [place] [address] 07/23/2016 09:07:13 07/23/2016 09:39:34 [id number] Caryn Laura NP FP, C, OFFICE [address] [facility] [place] [address] 02/04/2017 08:43:13 02/04/2017 09:23:22 [id number] Caryn Laura NP FP, C, OFFICE [address] [facility] [place] [address] 05/19/2017 14:09:06 05/19/2017 15:26:20 [id number] Caryn Laura NP FP, C, OFFICE [address] [facility] [place] [address] 08/06/2017 09:12:24 08/06/2017 10:32:38 [id number] Malik Ramirez PA-C FP, C, OFFICE [address] [facility] [place] [address] 03/03/2018 10:22:46 03/03/2018 11:05:38 [id number] Melva Umanzor RN BSN FP, C, OFFICE [address] [facility] [place] [address] 05/31/2018 15:08:11 05/31/2018 16:12:30 [id number] Caryn Laura NP FP, C, OFFICE [address] [facility] [place] [address] 07/14/2018 11:01:26 07/14/2018 11:35:28 [id number] Caryn Laura NP FP, C, OFFICE [address] [facility] [place] [address] 01/26/2019 09:07:03 01/26/2019 11:04:17 [id number] Caryn Laura NP FP, [facility], OFFICE [address] [facility] [place] [address] 06/24/2019 15:45:11 06/24/2019 16:52:34 [id number] Caryn Laura NP FP, C, OFFICE [address] [facility] [place] [address] 07/19/2019 11:01:45 07/19/2019 12:27:37 [id number] Caryn Laura NP FP, C, OFFICE [address] [facility] [place] [address] 08/22/2021 08:48:07 08/22/2021 09:24:50 [id number] Caryn Laura NP FP, C, [facility] [address] [facility] [place] [phone] 09/04/2022 08:49:53 09/04/2022 09:35:38 [id number] MATEO Virk, [facility], OFFICE [address] [facility] [place] [phone] 11/17/2022 11:12:10 11/28/2022 10:12:40 [id number] MATEO Virk, [facility], OFFICE [address] [facility] [place] [phone] 02/17/2023 08:06:38 02/17/2023 08:33:10 [id number] MD VILMA Patel, [facility], OFFICE [address] [facility] [place] [phone] 03/17/2023 17:05:26 03/17/2023 17:49:04 [id number] MATEO Virk, [facility], OFFICE [address] [facility] [place] [phone] 06/09/2023 09:34:11 06/09/2023 10:23:40 [id number] EMIR Oscar [employer] , [address] [phone] 07/27/2023 07:24:29 07/27/2023 11:28:33 [id number] LATHA Robert, [facility], OFFICE [address] [place] [phone] 09/08/2023 08:48:58 09/11/2023 13:10:08 [id number] LATHA Robert, [place], OFFICE [address] [place] [phone] 11/05/2023 10:03:53 11/06/2023 12:21:45 [id number] LATHA Robert, Xiang, OFFICE [address] [place] [phone] 06/23/2024 08:39:56 06/23/2024 12:16:01 Health Concerns Section Related Observation LastModified by Organization Detai ls LastModified Time None Recorded Concern Status LastModified by Organization Details LastModified Time None Recorded Advance Directives Directive None Recorded Payers Encounter Date Sequence Insurance Name Policy Number Policy Bhatia Covered Member ID Bhatia Member ID Guarantor Name 03/17/2023 1 [employer]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
== END 2024-09-14 01:42 | disposition home or self-care (01) ==
PROVIDERS: Emergency Provider Emergency Medicine; PCP Internal Medicine
DX: S51.851A Open bite of right forearm, initial encounter (principal); W54.0XXA Bitten by dog, initial encounter; Y93.9 Activity, unspecified; Y92.9 Unspecified place or not applicable; Y99.9 Unspecified external cause status; Z23 Encounter for immunization
CPT/HCPCS: 12013; 73090; 90471; 90715; 99284; J2004

== ENCOUNTER → 2024-09-13 20:08 | Outpatient (BNV) | payer BC, SELFPAY | PROVIDERS: PCP Internal Medicine; Visit Provider Radiology Neuroradiology | DX: S51.851A Open bite of right forearm, initial encounter (principal) | CPT/HCPCS: 73090 ==